=== PATIENT | female | born 1965 | race Caucasian/White ===

== ENCOUNTER 2021-04-05 21:17 | Emergency (ER) | payer MEDICAID, OTHER ==
--- NOTE | 2021-04-05 21:46 | ED Neurological Problem ---
General Chief Complaint: Altered Mental Status Stated Complaint: ALERED LOC Nursing Triage Note: Pt brought in by ems with altered mental status. Pt is alert and oriented on arrival with moderate aphasia Source: patient, EMS Exam Limitations: no limitations History of Present Illness Date Seen by Provider: Apr 05, 2021 Time Seen by Provider: 21:20 Initial Comments 55-year-old female with past medical history of CVA with speech changes, seizures, diabetes, hypertension coming in via EMS from home due to speech changes. This has been ongoing for 3 days and worsening. Similar to the last time she was diagnosed with a stroke. Daughter also called and said this is something that happens when the patient is using meth again. She says she is not using drugs currently and says she has not since January when she was admitted for her original stroke. Denies any chest pain, shortness of breath, abdominal pain, nausea, vomiting, diarrhea, weakness, numbness, fever, chills, vision changes, or any other concerns. Has been eating and drinking normally. Allergies and Home Medications Allergies Coded Allergies: sertraline (Verified Allergy, Unknown, 04/05/21) Patient Home Medication List Home Medication List Reviewed: Yes Review of Systems Review of Systems Constitutional: No chills, No fever Eyes: Denies Blurred Vision Ears, Nose, Mouth, Throat: no symptoms reported Respiratory: No cough, No short of breath Cardiovascular: No chest pain Gastrointestinal: No abdominal pain, No diarrhea, No nausea, No vomiting Genitourinary: no symptoms reported Musculoskeletal: no symptoms reported Skin: no symptoms reported Psychiatric/Neurological: Anxiety, Other (Speech changes) Endocrine: No Symptoms Reported Hematologic/Lymphatic: No Symptoms Reported All Other Systems Reviewed Negative Unless Noted: Yes Past Eckgqta-Ossgoy-Rzdrol Hx Patient Social History Tobacco Use?: Yes Tobacco type used: Cigarettes Substance type: Methamphetamine Past Medical History Surgeries: No Physical Exam Vital Signs Vital Signs - First Documented 04/05/21 21:18 Temp 36.4 Pulse 88 Resp 18 B/P (MAP) 160/94 (116) Pulse Ox 99 O2 Delivery Room Air Capillary Refill : Less Than 3 Seconds Height, Weight, BMI Height: '" Weight: lbs. oz. kg; BMI Method: General Appearance: WD/WN, no apparent distress HEENT: PERRL/EOMI, normal ENT inspection, pharynx normal Neck: non-tender, full range of motion, supple, normal inspection Respiratory: chest non-tender, lungs clear, normal breath sounds, no respiratory distress, no accessory muscle use Cardiovascular: regular rate, rhythm, no edema, no murmur Gastrointestinal: normal bowel sounds, non tender, soft; No distended, No guarding, No rebound Back: normal inspection, no CVA tenderness, no vertebral tenderness Extremities: normal range of motion, non-tender, normal inspection, no pedal edema, no calf tenderness Neurologic/Psychiatric: no motor/sensory deficits, alert, normal mood/affect, oriented x 3 Crainal Nerves: normal hearing, PERRL, other (Speech is delayed with some slurring) Coordination/Gait: normal finger to nose, normal gait Motor/Sensory: no motor deficit, no sensory deficit Skin: normal color, warm/dry Lymphatic: no adenopathy Stroke Onset of Symptoms Date of Onset of Symptoms: Mar 27, 2021 Time of Symptom Onset: 08:00 Onset of Symptoms: Yes NIH Stroke Scale Assessment Select: Initial Level of Consciousness: 0=Alert (0), Level of Consciousness- Questions: 0=Answers both month/age (0), LOC Commands: 0=Performs both tasks (0), Gaze: Normal (0), Visual Cha: 0=No visual loss (0), Facial Movement (Facial Paresis): 0=Normal symmetrical mnt (0), Motor Function-Arms Right: 0=No drift (0), Motor Function-Arms Left: 0=No drift (0), Motor Function-Legs Right: 0=No drift (0), Motor Function-Legs Left: 0=No drift (0), Limb Ataxia: 0=Absent (0), Sensory: 0=Normal:no loss (0), Best Language: 1=Mild to moderat aphasia (1), Dysarthria: 1=Mild to moderate loss (1), Extinction & Inattention: 0=No abnormality (0), Total: 2 Stroke Thrombolytic Exclusion Age 18 or Over: Yes Acute intenal hemorrhage: No History of CVA: Yes Uncontrolled Coagulation Defec: No Intracranial Hemorrhage: No Severe Hypertension: No GI or Bleed: No Subarachnoid Hemorrhage: No Intracranial Neoplasm/Aneurysm: No Oral Anticoagulants: No Surgery or Trauma: No Puncture of Non-Compressible V: No Recent CPR: No Diabetic Hemorrhagic Retinopat: No Organ Biopsy: No Recent Obstetric Delivery: No Glucose: No Significant Hepatic Dysfunctio: No NIH Stoke Scale >22: No Bacterial Endocarditis: No Pericarditis: No Improving Symptoms: Yes Platelets: No TPA Contraindication: Yes (started 3 days ago) IV - TPa Received IV - TPa Procedure Performed?: No Progress/Results/Core Measures Results/Orders Lab Results Laboratory Tests Test 04/05/21 22:00 04/05/21 22:32 Range/Units White Blood Count 9.5 4.3-11.0 10^3/uL Red Blood Count 5.02 3.80-5.11 10^6/uL Hemoglobin 13.9 11.5-16.0 g/dL Hematocrit 42 35-52 % Mean Corpuscular Volume 83 80-99 fL Mean Corpuscular Hemoglobin 28 25-34 pg Mean Corpuscular Hemoglobin Concent 33 32-36 g/dL Red Cell Distribution Width 15.8 H 10.0-14.5 % Platelet Count 422 H 130-400 10^3/uL Mean Platelet Volume 9.7 9.0-12.2 fL Immature Granulocyte % (Auto) 0 % Neutrophils (%) (Auto) 66 42-75 % Lymphocytes (%) (Auto) 25 12-44 % Monocytes (%) (Auto) 7 0-12 % Eosinophils (%) (Auto) 1 0-10 % Basophils (%) (Auto) 1 0-10 % Neutrophils # (Auto) 6.3 1.8-7.8 X 10^3 Lymphocytes # (Auto) 2.3 1.0-4.0 X 10^3 Monocytes # (Auto) 0.7 0.0-1.0 X 10^3 Eosinophils # (Auto) 0.1 0.0-0.3 10^3/uL Basophils # (Auto) 0.1 0.0-0.1 10^3/uL Immature Granulocyte # (Auto) 0.0 0.0-0.1 10^3/uL Prothrombin Time 12.9 12.2-14.7 SEC INR Comment 0.9 0.8-1.4 Activated Partial Thromboplast Time 25 24-35 SEC Sodium Level 138 135-145 MMOL/L Potassium Level 3.2 L 3.6-5.0 MMOL/L Chloride Level 99 98-107 MMOL/L Carbon Dioxide Level 24 21-32 MMOL/L Anion Gap 15 H 5-14 MMOL/L Blood Urea Nitrogen 13 7-18 MG/DL Creatinine 0.88 0.60-1.30 MG/DL Estimat Glomerular Filtration Rate 78 BUN/Creatinine Ratio 15 Glucose Level 138 H 70-105 MG/DL Calcium Level 9.1 8.5-10.1 MG/DL Corrected Calcium 9.2 8.5-10.1 MG/DL Magnesium Level 1.9 1.6-2.4 MG/DL Total Bilirubin 0.5 0.1-1.0 MG/DL Aspartate Amino Transf (AST/SGOT) 14 5-34 U/L Alanine Aminotransferase (ALT/SGPT) 11 0-55 U/L Alkaline Phosphatase 138 H 40-136 U/L Troponin I < 0.30 <0.30 NG/ML Total Protein 7.9 6.4-8.2 GM/DL Albumin 3.9 3.2-4.5 GM/DL Serum Alcohol < 10 <10 MG/DL Urine Color YELLOW Urine Clarity CLOUDY Urine pH 5.5 5-9 Urine Specific [place] >=1.030 1.016-1.022 Urine Protein 2+ H NEGATIVE Urine Glucose (UA) NEGATIVE NEGATIVE Urine Ketones NEGATIVE NEGATIVE Urine Nitrite NEGATIVE NEGATIVE Urine Bilirubin 1+ H NEGATIVE Urine Urobilinogen 0.2 < = 1.0 MG/DL Urine Leukocyte Esterase NEGATIVE NEGATIVE Urine RBC (Auto) 2+ H NEGATIVE Urine RBC NONE /HPF Urine WBC 2-5 /HPF Urine Squamous Epithelial Cells 0-2 /HPF Urine Crystals NONE /LPF Urine Bacteria LARGE H /HPF Urine Casts NONE /LPF Urine Mucus NEGATIVE /LPF Urine Culture Indicated YES Urine Opiates Screen NEGATIVE NEGATIVE Urine Oxycodone Screen NEGATIVE NEGATIVE Urine Methadone Screen NEGATIVE NEGATIVE Urine Propoxyphene Screen NEGATIVE NEGATIVE Urine Barbiturates Screen NEGATIVE NEGATIVE Ur Tricyclic Antidepressants Screen NEGATIVE NEGATIVE Urine Phencyclidine Screen NEGATIVE NEGATIVE Urine Amphetamines Screen POSITIVE H NEGATIVE Urine Methamphetamines Screen POSITIVE H NEGATIVE Urine Benzodiazepines Screen POSITIVE H NEGATIVE Urine Cocaine Screen NEGATIVE NEGATIVE Urine Cannabinoids Screen NEGATIVE NEGATIVE My Orders Orders - MICAH TINSLEY MD Cbc With Automated Diff (04/05/21 21:25) Protime With Inr (04/05/21 21:25) Partial Thromboplastin Time (04/05/21 21:25) Comprehensive Metabolic Panel (04/05/21 21:25) Troponin I Fs (04/05/21 21:25) Ua Culture If Indicated (04/05/21:25) Chest 1 View Ap/Pa Only (04/05/21:) Ekg Tracing (04/05/21:) Ed Iv/Invasive Line Start (04/05/21:) Vital Signs Stroke Patient Q15M (04/05/21 21:25) Ct Head Wo-R/O Stroke (04/05/21:) O2 (04/05/21:) Monitor-Rhythm Ecg Trace Only (04/05/21:) Dysphagia Screening Tool (04/05/21:) Drug Screen Stat (Urine) (04/05/21:) Alcohol (04/05/21:52) Magnesium (04/05/21:) Potassium Cl 10meq/50ml Ivpb (Kcl 10 Meq (04/05/21:32) Magnesium 1 Gm/100 Ml Ivpb (Magnesium Jara (04/05/21:) Urine Culture (04/05/21:) Vital Signs/I&O 04/05/21 21:18 Temp 36.4 Pulse 88 Resp 18 B/P (MAP) 160/94 (116) Pulse Ox 99 O2 Delivery Room Air Blood Pressure Mean: 116 Progress Progress Note : Progress Note 55-year-old female with above history coming in due to speech changes. ABCs were intact and vitals were stable on presentation. Physical exam normal except for she does have some dysarthria. NIH scale gets to further dysarthria and word finding difficulties. It does seem to be improving while she is in the emergency department. Given that the symptoms have been ongoing for 3 days she is not a candidate for TPA. This is similar to her prior stroke and could be recrudescence from some other etiology such as infection or drug use. CT head without contrast ordered and is similar to prior from January. Chest x-ray without any acute abnormalities. Urinalysis without evidence of infection but UDS test show methamphetamine and amphetamine. I brought this up with the patient and her spouse said that there was a time when he was in senior living recently when he was worried she could have done it with an undisclosed male which they began fighting about. Her potassium was slightly low and she was having some paired PVCs so she received IV potassium and IV magnesium replacement. She continued to be more coherent the longer she was in the emergency department. This could be intoxication versus recrudescence versus some other etiology. However, there does not appear to be any other acute abnormality that needs to be intervened on at this time. I believe she is stable for discharge with outpatient follow-up. She was sent home with strict return precautions Diagnostic Imaging Diagonstic Imaging: CT (head) Comments [facility], [place] NAME: PRESTON ALCANTARA [facility] REC#: [id number] PT STATUS: REG ER : 1965 PHYSICIAN: MICAH TINSLEY MD ADMIT DATE: 04/05/21/ER FS Signed Date of Exam:04/05/21 CT HEAD WO-R/O STROKE PROCEDURE: CT head wo r/o stroke. TECHNIQUE: Multiple contiguous axial images were obtained through the brain without the use of intravenous contrast. Auto Exposure Controls were utilized during the CT exam to meet ALARA standards for radiation dose reduction. INDICATION: Expressive aphasia The ventricles are normal in size, shape and position. There are no masses or hemorrhages. There are no extra-axial fluid collections. There are patchy areas of decreased density in the periventricular white matter in both cerebral hemispheres that are unchanged compared to 02/06/2021. IMPRESSION: Chronic ischemic leukoencephalopathy. No acute abnormality seen in the brain and no change compared to 02/06/2021. Results were called to Emergency Room prior to dictation. Dictated by: Dictated on workstation # [id number] Dict: 04/05/212151 Trans: 04/05/212153 [facility] [id number] Interpreted by: ALEISHA TAN MD Electronically signed by: ALEISHA TAN MD 04/05/212153 [facility] [place], [place] NAME: PRESTON ALCANTARA [facility] REC#: [id number] PT STATUS: REG ER : 1965 PHYSICIAN: MICAH TINSLEY MD ADMIT DATE: 04/05/21/ER FS Signed Date of Exam:04/05/21 CHEST 1 VIEW AP/PA ONLY Indication: Expressive aphasia Portable chest 9:42 PM Heart size and pulmonary vascularity are normal. Lungs are clear. There are no effusions or pneumothoraces. IMPRESSION: No acute abnormalities in the chest Dictated by: Dictated on workstation # [id number] Dict: 04/05/212153 Trans: 04/05/212153 [facility] [id number] Interpreted by: ALEISHA TAN MD Electronically signed by: ALEISHA TAN MD 04/05/212153 Departure Impression Primary Impression: Difficulty with speech Additional Impressions: Altered mental status Qualified Codes: R41.82 - Altered mental status, unspecified Hypokalemia Disposition: HOME, SELF-CARE Condition: Stable Departure-Patient Inst. Decision time for Depature: 00:00 Referrals: NO,LOCAL PHYSICIAN (PCP/Family) Primary Care Physician Patient Instructions: Hypokalemia (DC), Altered Mental Status (DC) Add. Discharge Instructions: You were seen in the emergency department because your speech has changed. We did a CT of your head which is unchanged from January. Your chest x-ray looks good. Your labs look good other than your potassium was slightly low so we gave you IV potassium and IV magnesium. This could potentially make symptoms worse. I recommend following up with the neurologist within the next couple weeks, also schedule appointment with your regular doctor if things are not improving. Work/School Note: Work Release Form Date Seen in the Emergency Department: Apr 05, 2021 Return to Work: Apr 07, 2021 Restrictions: No Restrictions MICAH TINSLEY MD Apr 05, 2021 21:46
--- NOTE | 2021-04-05 21:55 | Diagnostic Imaging Report ---
PROCEDURE: CT head wo r/o stroke. TECHNIQUE: Multiple contiguous axial images were obtained through the brain without the use of intravenous contrast. Auto Exposure Controls were utilized during the CT exam to meet ALARA standards for radiation dose reduction. INDICATION: Expressive aphasia The ventricles are normal in size, shape and position. There are no masses or hemorrhages. There are no extra-axial fluid collections. There are patchy areas of decreased density in the periventricular white matter in both cerebral hemispheres that are unchanged compared to 02/06/2021. IMPRESSION: Chronic ischemic leukoencephalopathy. No acute abnormality seen in the brain and no change compared to 02/06/2021. Results were called to Emergency Room prior to dictation. Dictated by: Dictated on workstation # [id number]
--- NOTE | 2021-04-05 21:56 | Diagnostic Imaging Report ---
Indication: Expressive aphasia Portable chest 9:42 PM Heart size and pulmonary vascularity are normal. Lungs are clear. There are no effusions or pneumothoraces. IMPRESSION: No acute abnormalities in the chest Dictated by: Dictated on workstation # [id number]
[2021-04-05 22:04] LABS: BASOPHILS % (AUTO) 1 % (0-10); EOSINOPHILS % (AUTO) 1 % (0-10); HEMATOCRIT 42 % (35-52); HEMOGLOBIN 13.9 g/dL (11.5-16.0); LYMPHOCYTES % (AUTO) 25 % (12-44); MEAN CORPUSCULAR HEMOGLOBIN 28 pg (25-34); MEAN CORPUSCULAR HGB CONC 33 g/dL (32-36); MEAN CORPUSCULAR VOLUME 83 fL (80-99); MEAN PLATELET VOLUME 9.7 fL (9.0-12.2); MONOCYTES % (AUTO) 7 % (0-12); NEUTROPHILS # (AUTO) 6.3 X 10^3 (1.8-7.8); NEUTROPHILS % (AUTO) 66 % (42-75); PLATELET COUNT 422 10^3/uL (130-400); WHITE BLOOD COUNT 9.5 10^3/uL (4.3-11.0)
[2021-04-05 22:05] LABS: BASOPHILS # (AUTO) 0.1 10^3/uL (0.0-0.1); EOSINOPHILS # (AUTO) 0.1 10^3/uL (0.0-0.3); LYMPHOCYTES # (AUTO) 2.3 X 10^3 (1.0-4.0); MONOCYTES # (AUTO) 0.7 X 10^3 (0.0-1.0)
[2021-04-05 22:15] LABS: INR 0.9 (0.8-1.4); PROTHROMBIN TIME PATIENT 12.9 SEC (12.2-14.7)
[2021-04-05 22:23] LABS: BUN/CREATININE RATIO 15; CARBON DIOXIDE 24 MMOL/L (21-32); CHLORIDE 99 MMOL/L (98-107); CREATININE SERUM 0.88 MG/DL (0.60-1.30); GFR ESTIMATED 78; POTASSIUM 3.2 MMOL/L (3.6-5.0); SODIUM 138 MMOL/L (135-145)
[2021-04-05 22:24] LABS: ALANINE AMINOTRANSFERASE 11 U/L (0-55); ALBUMIN 3.9 GM/DL (3.2-4.5); ALKALINE PHOSPHATASE 138 U/L (40-136); BILIRUBIN,TOTAL 0.5 MG/DL (0.1-1.0); CALCIUM 9.1 MG/DL (8.5-10.1); GLUCOSE 138 MG/DL (70-105); MAGNESIUM 1.9 MG/DL (1.6-2.4); TOTAL PROTEIN 7.9 GM/DL (6.4-8.2)
[2021-04-05] MEDS ORDERED: MAGNESIUM 1 GM/100 ML IVPB 100 ML IV STA (22:32)
[2021-04-05] MEDS ORDERED: POTASSIUM CL 10MEQ/50ML IVPB 50 ML IV STA (22:32)
[2021-04-05 22:37] LABS: BACTERIA,URINE LARGE /HPF; BILIRUBIN,URINE 1+ (NEGATIVE); CLARITY,URINE CLOUDY; COLOR,URINE YELLOW; GLUCOSE, URINE (UA) NEGATIVE (NEGATIVE); KETONES,URINE NEGATIVE (NEGATIVE); LEUKOCYTE ESTERASE ,URINE NEGATIVE (NEGATIVE); NITRITE,URINE NEGATIVE (NEGATIVE); PH,URINE 5.5 (5-9); PROTEIN,URINE 2+ (NEGATIVE); SQUAMOUS EPITHELIAL CELL,UR 0-2 /HPF
[2021-04-05 22:49] LABS: AMPHETAMINE SCREEN, URINE POSITIVE (NEGATIVE); BARBITURATE SCREEN URINE NEGATIVE (NEGATIVE); BENZODIAZEPINES SCREEN URINE POSITIVE (NEGATIVE); CANNABINOID SCREEN, URINE NEGATIVE (NEGATIVE); COCAINE SCREEN URINE NEGATIVE (NEGATIVE); METHADONE STAT NEGATIVE (NEGATIVE); METHAMPHETAMINE SCREEN URINE S POSITIVE (NEGATIVE); OPIATE SCREEN URINE NEGATIVE (NEGATIVE); OXYCODONE STAT NEGATIVE (NEGATIVE); PROPOXYPHENE STAT NEGATIVE (NEGATIVE); TRICYCLIC ANTIDEPRESSANTS SCRE NEGATIVE (NEGATIVE)
[2021-04-05] MEDS ORDERED: KCL 20 MEQ TAB (K-DUR) PO ONE (23:15)
[2021-04-05 23:40] VITALS: BP 137/83
== END 2021-04-05 23:40 | disposition home or self-care (01) ==
LOC: ER FS 21:21
DX: R47.9 Unspecified speech disturbances (principal); R41.82 Altered mental status, unspecified; E87.6 Hypokalemia; Z72.0 Tobacco use
CPT/HCPCS: 36415; 70450; 71045; 80053; 80306; 80320; 81000; 83735; 84484; 85025; 85610; 85730; 87088; 93041

== ENCOUNTER 2021-04-10 02:07 | Emergency (ER) | payer MEDICAID ==
[2021-04-10] MEDS ORDERED: NS IV 1000 ML 1,000 ML IV SCH ×2 (02:30→03:15)
--- NOTE | 2021-04-10 02:33 | ED Psychosocial ---
General Chief Complaint: Substance Abuse Stated Complaint: [facility] Nursing Triage Note: PT ARRIVED BY [facility] WITH CHIEF COMPLAINT OF SUBSTANCE ABUSE. PT'S HAS BEEN GONE FOR DAYS AND WHEN HE CAME BACK HE FOUND HER LIKE THIS (UNABLE TO SPEAK, UNCLEAR OF ISSUES). PT WHEN ASKED IF SHE USED METH SHE SAID YES. PT HAS TRACK BELTRÁN PER EMS. EMS STATED SHE HAD SOME PVCS ON THE MONITOR. PT HAS HISTORY OF STROKE AND SEIZURES PER EMS. PT IS ALERT, BUT WILL NOT ANSWER ANY QUESTIONS. 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 REPORT WAS GIVEN TO PROVIDER. History of Present Illness Date Seen by Provider: Apr 10, 2021 Time Seen by Provider: 02:17 Initial Comments 55 yr F with PMH of chronic substance abuse, specifically methamphetamines, stroke and seizures, is brought in by EMS with c/o methamphetamine use. Pt's called EMS since he came home and found that she had used meth, defecated all around the house, and had not been answering his phone calls. Pt is not really speaking but she is responding to commands slowly and will answer yes or no questions, and is able to walk to the bathroom with assistance. She appears intoxicated and high on meth. Denies pain, nausea, vomiting , chest pain, abdominal pain, headache. Pt was in the ER with the same complaints and presentation about 5 days ago. Allergies and Home Medications Allergies Coded Allergies: sertraline (Verified Allergy, Unknown, 04/05/21) Patient Home Medication List Home Medication List Reviewed: Yes Review of Systems Constitutional: no symptoms reported EENTM: no symptoms reported Respiratory: no symptoms reported Cardiovascular: no symptoms reported Gastrointestinal: no symptoms reported Genitourinary: no symptoms reported Musculoskeletal: no symptoms reported Skin: no symptoms reported Psychiatric/Neurological: Emotional Problems, Other (substance abuse, able to walk onher own . Pt improving in ER after fluids) Past Ybbpjix-Gefqyl-Mwidgo Hx Patient Social History Smoking Status: Unknown if Ever Smoked Substance use?: Yes Substance type: Methamphetamine Alcohol Use?: Unable to obtain Pt feels they are or have been: No Past Medical History Surgery/Hospitalization HX: IV Drug Abuse, Mehtamphetamine Abuse, Anxiety Surgeries: No Physical Exam Vital Signs - First Documented 04/10/21 02:07 Temp 36.7 Pulse 105 Resp 26 B/P (MAP) 164/115 (131) Pulse Ox 100 O2 Delivery Room Air Capillary Refill : Less Than 3 Seconds Height, Weight, BMI Height: '" Weight: lbs. oz. kg; 33.00 BMI Method: General Appearance: no apparent distress HEENT: PERRL/EOMI Neck: full range of motion Respiratory: lungs clear, normal breath sounds, no respiratory distress, no accessory muscle use Cardiovascular: no edema, no murmur, other (trigeminy) Gastrointestinal: normal bowel sounds, non tender, soft Extremities: normal range of motion, non-tender, no pedal edema, normal capillary refill Neurologic/Psychiatric: theology professor II-XII nml as tested, no motor/sensory deficits, alert, other (pt improving after she received fluids, able to ambulate and follow commands ) Appearance/Memory: no memory impairment, disheveled Behavior/Eye Contact: cooperative, refused to answer Thoughts/Hallucinations: no apparent hallucination Skin: normal color Lymphatic: no adenopathy Progress/Results/Core Measures Results/Orders Lab Results Laboratory Tests Test 04/10/21 02:35 Range/Units White Blood Count 11.7 H 4.3-11.0 10^3/uL Red Blood Count 5.55 H 3.80-5.11 10^6/uL Hemoglobin 15.3 11.5-16.0 g/dL Hematocrit 45 35-52 % Mean Corpuscular Volume 81 80-99 fL Mean Corpuscular Hemoglobin 28 25-34 pg Mean Corpuscular Hemoglobin Concent 34 32-36 g/dL Red Cell Distribution Width 15.3 H 10.0-14.5 % Platelet Count 508 H 130-400 10^3/uL Mean Platelet Volume 9.8 9.0-12.2 fL Immature Granulocyte % (Auto) 1 % Neutrophils (%) (Auto) 68 42-75 % Lymphocytes (%) (Auto) 23 12-44 % Monocytes (%) (Auto) 7 0-12 % Eosinophils (%) (Auto) 2 0-10 % Basophils (%) (Auto) 1 0-10 % Neutrophils # (Auto) 7.9 H 1.8-7.8 10^3/uL Lymphocytes # (Auto) 2.6 1.0-4.0 10^3/uL Monocytes # (Auto) 0.8 0.0-1.0 10^3/uL Eosinophils # (Auto) 0.2 0.0-0.3 10^3/uL Basophils # (Auto) 0.1 0.0-0.1 10^3/uL Immature Granulocyte # (Auto) 0.1 0.0-0.1 10^3/uL Sodium Level 138 135-145 MMOL/L Potassium Level 3.2 L 3.6-5.0 MMOL/L Chloride Level 99 98-107 MMOL/L Carbon Dioxide Level 23 21-32 MMOL/L Anion Gap 16 H 5-14 MMOL/L Blood Urea Nitrogen 8 7-18 MG/DL Creatinine 0.67 0.60-1.30 MG/DL Estimat Glomerular Filtration Rate 104 BUN/Creatinine Ratio 12 Glucose Level 125 H 70-105 MG/DL Calcium Level 9.3 8.5-10.1 MG/DL Corrected Calcium 9.2 8.5-10.1 MG/DL Total Bilirubin 0.3 0.1-1.0 MG/DL Aspartate Amino Transf (AST/SGOT) 20 5-34 U/L Alanine Aminotransferase (ALT/SGPT) 20 0-55 U/L Alkaline Phosphatase 136 40-136 U/L Troponin I < 0.30 <0.30 NG/ML Total Protein 8.3 H 6.4-8.2 GM/DL Albumin 4.1 3.2-4.5 GM/DL Salicylates Level < 0.3 L 5.0-20.0 MG/DL Acetaminophen Level < 10 L 10-30 UG/ML Serum Alcohol < 10 <10 MG/DL My Orders Orders - KAM HALL MD Ua Culture If Indicated (04/10/21 02:18) Cbc With Automated Diff (04/10/21 02:18) Comprehensive Metabolic Panel (04/10/21 02:18) Alcohol (04/10/21 02:18) Drug Screen Stat (Urine) (04/10/21 02:18) Acetaminophen (04/10/21 02:18) Salicylate (04/10/21 02:18) Ekg Tracing (04/10/21 02:18) Ed Iv/Invasive Line Start (04/10/21 02:18) Monitor-Rhythm Ecg Trace Only (04/10/21 02:18) Bh Status Checks/Observation Q15M (04/10/21 02:18) Ns Iv 1000 Ml (Sodium Chloride 0.9%) (04/10/21 02:30) Troponin I Fs (04/10/21 02:33) Ns Iv 1000 Ml (Sodium Chloride 0.9%) (04/10/21 03:15) Potassium Chloride (Tablet) (K Dur Table (04/10/21 03:17) Vital Signs/I&O 04/10/21 02:07 Temp 36.7 Pulse 105 Resp 26 B/P (MAP) 164/115 (131) Pulse Ox 100 O2 Delivery Room Air Blood Pressure Mean: 131 Progress Progress Note : Progress Note 1.METHAMPHETAMINE ABUSE: - Multiple ER visits for this - EKG shows trigeminy, but with slow improvement after fluids - Will keep in ER to observe until can come pick her up. - labs overall unremarkable - UDS: positive for methamphetamines and benzos - Recommend rehab 2. HYPOKALEMIA/ MILD DEHYDRATION: - s. Kis 3.2 - Oral Potassium 40mEq STAT - 2L of IVF, then 3rd bag 150/hr Initial ECG Impression Date: Apr 10, 2021 Initial ECG Impression Time: 02:19 Initial ECG Rate: 97 Initial ECG Rhythm: PVC (trigeminy) Initial ECG Comparisson: Unchanged Comment Trigeminy, PVC's Departure Impression Primary Impression: Methamphetamine abuse Additional Impressions: Hypokalemia Dehydration, mild Disposition: 01 HOME, SELF-CARE Condition: Improved Departure-Patient Inst. Referrals: NO,LOCAL PHYSICIAN (PCP/Family) Primary Care Physician Patient Instructions: Drug Abuse and Drug Addiction (DC), Hypokalemia (DC), Meth Mouth Add. Discharge Instructions: Advised to stop using meth. Advised Rehab. Adequate hydration advised All discharge instructions reviewed with patient and/or family. Voiced understanding. KAM HALL MD Apr 10, 2021 02:33
[2021-04-10 02:50] LABS: BASOPHILS # (AUTO) 0.1 10^3/uL (0.0-0.1); BASOPHILS % (AUTO) 1 % (0-10); EOSINOPHILS # (AUTO) 0.2 10^3/uL (0.0-0.3); EOSINOPHILS % (AUTO) 2 % (0-10); HEMATOCRIT 45 % (35-52); HEMOGLOBIN 15.3 g/dL (11.5-16.0); LYMPHOCYTES # (AUTO) 2.6 10^3/uL (1.0-4.0); LYMPHOCYTES % (AUTO) 23 % (12-44); MEAN CORPUSCULAR HEMOGLOBIN 28 pg (25-34); MEAN CORPUSCULAR HGB CONC 34 g/dL (32-36); MEAN CORPUSCULAR VOLUME 81 fL (80-99); MEAN PLATELET VOLUME 9.8 fL (9.0-12.2); MONOCYTES # (AUTO) 0.8 10^3/uL (0.0-1.0); MONOCYTES % (AUTO) 7 % (0-12); NEUTROPHILS # (AUTO) 7.9 10^3/uL (1.8-7.8); NEUTROPHILS % (AUTO) 68 % (42-75); PLATELET COUNT 508 10^3/uL (130-400); WHITE BLOOD COUNT 11.7 10^3/uL (4.3-11.0)
[2021-04-10 03:10] LABS: ACETAMINOPHEN < 10 UG/ML (10-30); SALICYLATE < 0.3 MG/DL (5.0-20.0)
[2021-04-10 03:12] LABS: BUN/CREATININE RATIO 12; CARBON DIOXIDE 23 MMOL/L (21-32); CHLORIDE 99 MMOL/L (98-107); CREATININE SERUM 0.67 MG/DL (0.60-1.30); GFR ESTIMATED 104; GLUCOSE 125 MG/DL (70-105); POTASSIUM 3.2 MMOL/L (3.6-5.0); SODIUM 138 MMOL/L (135-145)
[2021-04-10 03:13] LABS: ALANINE AMINOTRANSFERASE 20 U/L (0-55); ALBUMIN 4.1 GM/DL (3.2-4.5); ALKALINE PHOSPHATASE 136 U/L (40-136); BILIRUBIN,TOTAL 0.3 MG/DL (0.1-1.0); CALCIUM 9.3 MG/DL (8.5-10.1); TOTAL PROTEIN 8.3 GM/DL (6.4-8.2)
[2021-04-10] MEDS ORDERED: KCL 20 MEQ TAB (K-DUR) PO STA (03:17)
[2021-04-10 03:25] LABS: BILIRUBIN,URINE NEGATIVE (NEGATIVE); CLARITY,URINE CLEAR; COLOR,URINE YELLOW; GLUCOSE, URINE (UA) NEGATIVE (NEGATIVE); KETONES,URINE 2+ (NEGATIVE); LEUKOCYTE ESTERASE ,URINE NEGATIVE (NEGATIVE); NITRITE,URINE NEGATIVE (NEGATIVE); PROTEIN,URINE TRACE (NEGATIVE)
[2021-04-10 03:32] LABS: BACTERIA,URINE TRACE /HPF; WBC,URINE 0-2 /HPF
[2021-04-10 03:42] LABS: AMPHETAMINE SCREEN, URINE POSITIVE (NEGATIVE); BENZODIAZEPINES SCREEN URINE POSITIVE (NEGATIVE); COCAINE SCREEN URINE NEGATIVE (NEGATIVE); METHAMPHETAMINE SCREEN URINE S POSITIVE (NEGATIVE)
[2021-04-10 03:43] LABS: BARBITURATE SCREEN URINE NEGATIVE (NEGATIVE); CANNABINOID SCREEN, URINE NEGATIVE (NEGATIVE); METHADONE STAT NEGATIVE (NEGATIVE); OPIATE SCREEN URINE NEGATIVE (NEGATIVE); OXYCODONE STAT NEGATIVE (NEGATIVE); PROPOXYPHENE STAT NEGATIVE (NEGATIVE); TRICYCLIC ANTIDEPRESSANTS SCRE NEGATIVE (NEGATIVE)
[2021-04-10] MEDS ORDERED: NS IV 1000 ML 1,000 ML IV STA (03:58)
[2021-04-10 06:15] VITALS: BP 152/90
== END 2021-04-10 06:15 | disposition home or self-care (01) ==
LOC: EDUNIT# 02:07 → ER FS 02:08
DX: F15.10 Other stimulant abuse, uncomplicated (principal); E87.6 Hypokalemia; E86.0 Dehydration
CPT/HCPCS: 36415; 80053; 80306; 80320; 80329; 81000; 84484; 85025; 93005; 93041

== ENCOUNTER 2021-04-19 11:13 | Emergency (ER) | payer MEDICAID ==
[~2021-04-19] VITALS: Ht 149.9 cm; Wt 78.0 kg
[2021-04-19] MEDS ORDERED: NS IV 1000 ML 1,000 ML IV SCH (11:30)
[2021-04-19 11:43] LABS: BASOPHILS # (AUTO) 0.1 10^3/uL (0.0-0.1); BASOPHILS % (AUTO) 1 % (0-10); EOSINOPHILS # (AUTO) 0.2 10^3/uL (0.0-0.3); EOSINOPHILS % (AUTO) 2 % (0-10); HEMATOCRIT 47 % (35-52); HEMOGLOBIN 15.2 g/dL (11.5-16.0); LYMPHOCYTES # (AUTO) 2.3 10^3/uL (1.0-4.0); LYMPHOCYTES % (AUTO) 22 % (12-44); MEAN CORPUSCULAR HEMOGLOBIN 28 pg (25-34); MEAN CORPUSCULAR HGB CONC 33 g/dL (32-36); MEAN CORPUSCULAR VOLUME 84 fL (80-99); MEAN PLATELET VOLUME 10.6 fL (9.0-12.2); MONOCYTES # (AUTO) 0.6 10^3/uL (0.0-1.0); MONOCYTES % (AUTO) 6 % (0-12); NEUTROPHILS # (AUTO) 7.2 10^3/uL (1.8-7.8); NEUTROPHILS % (AUTO) 69 % (42-75); PLATELET COUNT 495 10^3/uL (130-400); WHITE BLOOD COUNT 10.5 10^3/uL (4.3-11.0)
[2021-04-19 12:03] LABS: BILIRUBIN,TOTAL 0.5 MG/DL (0.1-1.0); CALCIUM 9.7 MG/DL (8.5-10.1); CREATININE SERUM 0.83 MG/DL (0.60-1.30); POTASSIUM 4.6 MMOL/L (3.6-5.0)
[2021-04-19 12:04] LABS: ALBUMIN 4.3 GM/DL (3.2-4.5); TOTAL PROTEIN 8.3 GM/DL (6.4-8.2)
--- NOTE | 2021-04-19 12:19 | ED General ---
General Chief Complaint: General Problems/Pain Stated Complaint: NOT EATING/DRINKING Nursing Triage Note: PT AMBULATE TO ROOM FS02 WITH C/O NOT EATING OR DRINKING X48 HOURS. FAMILY STATES THAT PT HAS HX OF STROKE AND TIA AND WAS DISCHARGED FOR [facility] FOR TIA ON 04/15/21. DAUGHTER STATES THAT SHE IS TAKING PT HOME WITH HER AND THAT SHE IS WANTING FLUIDS TO GIVE HER ENOUGH ENERGY TO START EATING AND DRINKING. Source of Information: Patient Exam Limitations: No Limitations History of Present Illness Date Seen by Provider: Apr 19, 2021 Time Seen by Provider: 11:45 Initial Comments Patient is a 55-year-old female with history of CVA who requires in-home care to perform ADLs including feeding who presents with concerns for neglect. Patient's daughter states the patient has not been eating or drinking for the past 48 hours due to lack of attendant care in the home. Patient has a stroke history of TIA was discharged from [facility] on 04/15/2021. Daughter is seeking to transition care to her home and notify social worker delinquency prevention. Patient denies new symptoms or complaints at this time. Timing/Duration: 3-4 Days Severity: Mild Modifying Factors: improves with Other Associated Systoms: Other Allergies and Home Medications Allergies Coded Allergies: sertraline (Verified Allergy, Unknown, 04/05/21) Patient Home Medication List Home Medication List Reviewed: Yes Review of Systems Review of Systems Constitutional: see HPI EENTM: see HPI Respiratory: see HPI Cardiovascular: see HPI Gastrointestinal: see HPI Genitourinary: see HPI Musculoskeletal: see HPI Skin: see HPI Psychiatric/Neurological: See HPI Hematologic/Lymphatic: See HPI Immunological/Allergic: see HPI All Other Systems Reviewed Negative Unless Noted: Yes Past Wolywar-Pkgnxq-Zfmeqf Hx Patient Social History Tobacco Use?: Yes Tobacco type used: Cigarettes Smoking Status: Current Everyday Smoker Smokeless Tobacco Frequency: Never a User Use of E-Cig and/or Vaping Smith: Never a User Substance use?: Yes Substance type: Methamphetamine Substance frequency: Couple times a week Alcohol Use?: No Pt feels they are or have been: No Past Medical History Surgery/Hospitalization HX: IV Drug Abuse, Mehtamphetamine Abuse, Anxiety Surgeries: No Physical Exam Vital Signs Vital Signs - First Documented 04/19/21 11:20 Temp 36.5 Pulse 107 Resp 14 B/P (MAP) 144/69 (94) O2 Delivery Room Air Capillary Refill : Less Than 3 Seconds Height, Weight, BMI Height: '" Weight: lbs. oz. kg; 34.00 BMI Method: General Appearance: WD/WN Eyes: Bilateral Eye Normal Inspection, Bilateral Eye PERRL, Bilateral Eye EOMI HEENT: PERRL/EOMI, Normal ENT Inspection, Pharynx Normal Neck: Full Range of Motion, Non Tender, Supple Respiratory: Lungs Clear, Decreased Breath Sounds, Rhonci Cardiovascular: Regular Rate, Rhythm Gastrointestinal: Non Tender, Soft Extremity: Non Tender, No Calf Tenderness Neurologic/Psychiatric: Alert, Oriented x3 Focused Exam Sepsis Stage: Ruled Out Progress/Results/Core Measures Suspected Sepsis SIRS Temperature: Pulse: 107 Respiratory Rate: 14 Laboratory Tests 04/19/21 11:39: White Blood Count 10.5 Blood Pressure 144 /69 Mean: 94 Laboratory Tests 04/19/21 11:39: Creatinine 0.83, Platelet Count 495H, Total Bilirubin 0.5 Results/Orders Lab Results Laboratory Tests Test 04/19/21 11:39 04/19/21 13:00 Range/Units White Blood Count 10.5 4.3-11.0 10^3/uL Red Blood Count 5.53 H 3.80-5.11 10^6/uL Hemoglobin 15.2 11.5-16.0 g/dL Hematocrit 47 35-52 % Mean Corpuscular Volume 84 80-99 fL Mean Corpuscular Hemoglobin 28 25-34 pg Mean Corpuscular Hemoglobin Concent 33 32-36 g/dL Red Cell Distribution Width 16.1 H 10.0-14.5 % Platelet Count 495 H 130-400 10^3/uL Mean Platelet Volume 10.6 9.0-12.2 fL Immature Granulocyte % (Auto) 0 % Neutrophils (%) (Auto) 69 42-75 % Lymphocytes (%) (Auto) 22 12-44 % Monocytes (%) (Auto) 6 0-12 % Eosinophils (%) (Auto) 2 0-10 % Basophils (%) (Auto) 1 0-10 % Neutrophils # (Auto) 7.2 1.8-7.8 10^3/uL Lymphocytes # (Auto) 2.3 1.0-4.0 10^3/uL Monocytes # (Auto) 0.6 0.0-1.0 10^3/uL Eosinophils # (Auto) 0.2 0.0-0.3 10^3/uL Basophils # (Auto) 0.1 0.0-0.1 10^3/uL Immature Granulocyte # (Auto) 0.0 0.0-0.1 10^3/uL Sodium Level 136 135-145 MMOL/L Potassium Level 4.6 3.6-5.0 MMOL/L Chloride Level 98 98-107 MMOL/L Carbon Dioxide Level 24 21-32 MMOL/L Anion Gap 14 5-14 MMOL/L Blood Urea Nitrogen 16 7-18 MG/DL Creatinine 0.83 0.60-1.30 MG/DL Estimat Glomerular Filtration Rate 84 BUN/Creatinine Ratio 19 Glucose Level 258 H 70-105 MG/DL Calcium Level 9.7 8.5-10.1 MG/DL Corrected Calcium 9.5 8.5-10.1 MG/DL Total Bilirubin 0.5 0.1-1.0 MG/DL Aspartate Amino Transf (AST/SGOT) 31 5-34 U/L Alanine Aminotransferase (ALT/SGPT) 26 0-55 U/L Alkaline Phosphatase 121 40-136 U/L Total Protein 8.3 H 6.4-8.2 GM/DL Albumin 4.3 3.2-4.5 GM/DL Urine Color YELLOW Urine Clarity CLEAR Urine pH 6.5 5-9 Urine Specific Rescue 1.025 H 1.016-1.022 Urine Protein TRACE H NEGATIVE Urine Glucose (UA) 2+ H NEGATIVE Urine Ketones TRACE H NEGATIVE Urine Nitrite NEGATIVE NEGATIVE Urine Bilirubin NEGATIVE NEGATIVE Urine Urobilinogen 1.0 < = 1.0 MG/DL Urine Leukocyte Esterase NEGATIVE NEGATIVE Urine RBC (Auto) NEGATIVE NEGATIVE Urine RBC NONE /HPF Urine WBC NONE /HPF Urine Squamous Epithelial Cells 10-25 H /HPF Urine Crystals NONE /LPF Urine Bacteria TRACE /HPF Urine Casts PRESENT /LPF Urine Hyaline Casts 5-10 H /LPF Urine Mucus NEGATIVE /LPF Urine Yeast FEW H /HPF Urine Culture Indicated NO My Orders Orders - GLORIA MERCEDES DO Cbc With Automated Diff (04/19/21 11:28) Comprehensive Metabolic Panel (04/19/21 11:28) Ua Culture If Indicated (04/19/21 11:28) Ns Iv 1000 Ml (Sodium Chloride 0.9%) (04/19/21 11:30) Vital Signs/I&O 04/19/21 11:20 Temp 36.5 Pulse 107 Resp 14 B/P (MAP) 144/69 (94) O2 Delivery Room Air Capillary Refill : Less Than 3 Seconds Blood Pressure Mean: 94 Departure Communication (Admissions) IV fluids given, labs reviewed. Labs reviewed. Will dc home to daughter and PCP follow up. Impression Primary Impression: General medical exam Disposition: HOME, SELF-CARE Condition: Stable Departure-Patient Inst. Decision time for Depature: 13:33 Referrals: THONY ORELLANA MD (PCP/Family) Primary Care Physician Add. Discharge Instructions: Please follow-up with your PCP and/or rehabilitation supervisor for coordination of additional outpatient resources and management. Return to the ED if new or wor sening symptoms. All discharge instructions reviewed with patient and/or family. Voiced understanding. GLORIA MERCEDES DO Apr 19, 2021 12:19
[2021-04-19 13:10] LABS: BACTERIA,URINE TRACE /HPF; BILIRUBIN,URINE NEGATIVE (NEGATIVE); CLARITY,URINE CLEAR; COLOR,URINE YELLOW; GLUCOSE, URINE (UA) 2+ (NEGATIVE); KETONES,URINE TRACE (NEGATIVE); LEUKOCYTE ESTERASE ,URINE NEGATIVE (NEGATIVE); NITRITE,URINE NEGATIVE (NEGATIVE); PH,URINE 6.5 (5-9); PROTEIN,URINE TRACE (NEGATIVE)
[2021-04-19 13:11] LABS: YEAST,URINE FEW /HPF
[2021-04-19 13:47] VITALS: BP 146/71
== END 2021-04-19 13:47 | disposition home or self-care (01) ==
LOC: EDUNIT# 11:13 → ER FS 11:15
DX: Z00.00 Encounter for general adult medical examination without abnormal findings (principal); F17.210 Nicotine dependence, cigarettes, uncomplicated
CPT/HCPCS: 36415; 80053; 81000; 85025; 96360; 99283

== ENCOUNTER 2022-05-11 10:00 | Inpatient (IN) | payer MEDICAID ==
[~2022-05-11] VITALS: Ht 149.9 cm; Wt 72.2 kg
--- NOTE | 2022-05-11 10:22 | ED Integumentary General ---
General Chief Complaint: Skin/Wound Problems Stated Complaint: BACK ABCESS History of Present Illness Date Seen by Provider: May 11, 2022 Time Seen by Provider: 10:13 Initial Comments 56-year-old female with PMH of HTN/DM2/HLD/past CVA, is here with complaints of an swelling on her back. Patient went to urgent care 1 week back and was started on Bactrim. Patient states that she has developed fever and chills with nausea and vomiting in the past few days, with the abscess becoming more red and inflamed, with associated back pain. Denies headache, neck pain, neck stiffness, blurry vision, insect bites. Allergies and Home Medications Allergies Coded Allergies: sertraline (Verified Allergy, Unknown, 04/05/21) Patient Home Medication List Home Medication List Reviewed: Yes Review of Systems Review of Systems Constitutional: chills, fever EENTM: no symptoms reported Respiratory: no symptoms reported Cardiovascular: no symptoms reported Gastrointestinal: no symptoms reported Genitourinary: no symptoms reported : No Musculoskeletal: back pain Skin: change in color, lesions Psychiatric/Neurological: No Symptoms Reported Endocrine: No Symptoms Reported Hematologic/Lymphatic: No Symptoms Reported Past Nyhdlms-Egdzxt-Brskgb Hx Past Medical History Surgery/Hospitalization HX: IV Drug Abuse, Mehtamphetamine Abuse, Anxiety Surgeries: No Physical Exam Vital Signs Vital Signs - First Documented 05/11/22 10:03 Temp 36.8 Pulse 95 Resp 16 Pulse Ox 100 O2 Delivery Room Air Capillary Refill : General Appearance: WD/WN, no apparent distress HEENT: PERRL/EOMI Neck: non-tender, full range of motion, supple, normal inspection Back: vertebral tenderness (T2-T4 tenderness underneath the skin changes. See skin exam for details on abscess) Extremities: normal range of motion, non-tender Neurologic/Psychiatric: no motor/sensory deficits, alert, normal mood/affect, oriented x 3 Skin: other (Inflamed and erythematous skin changes on back overlying the thoracic spine, approximately T2-T4 levels. Erythema measuring 9 cm diameter, warm to touch, firm in consistency. No active discharge) Skin Problem Location: other Skin Problem Character: erythema, tenderness, thickening, warm Progress/Results/Core Measures Results/Orders Lab Results Laboratory Tests Test 05/11/22 11:10 Range/Units White Blood Count 21.5 H 4.3-11.0 10^3/uL Red Blood Count 4.75 3.80-5.11 10^6/uL Hemoglobin 13.3 11.5-16.0 g/dL Hematocrit 40 35-52 % Mean Corpuscular Volume 85 80-99 fL Mean Corpuscular Hemoglobin 28 25-34 pg Mean Corpuscular Hemoglobin Concent 33 32-36 g/dL Red Cell Distribution Width 14.6 H 10.0-14.5 % Platelet Count 525 H 130-400 10^3/uL Mean Platelet Volume 9.2 9.0-12.2 fL Immature Granulocyte % (Auto) 1 % Neutrophils (%) (Auto) 82 H 42-75 % Lymphocytes (%) (Auto) 10 L 12-44 % Monocytes (%) (Auto) 6 0-12 % Eosinophils (%) (Auto) 1 0-10 % Basophils (%) (Auto) 0 0-10 % Neutrophils # (Auto) 17.6 H 1.8-7.8 10^3/uL Lymphocytes # (Auto) 2.1 1.0-4.0 10^3/uL Monocytes # (Auto) 1.3 H 0.0-1.0 10^3/uL Eosinophils # (Auto) 0.3 0.0-0.3 10^3/uL Basophils # (Auto) 0.1 0.0-0.1 10^3/uL Immature Granulocyte # (Auto) 0.2 H 0.0-0.1 10^3/uL Neutrophils % (Manual) 78 % Lymphocytes % (Manual) 14 % Monocytes % (Manual) 5 % Eosinophils % (Manual) 1 % Basophils % (Manual) 0 % Band Neutrophils 2 % Sodium Level 135 135-145 MMOL/L Potassium Level 3.9 3.6-5.0 MMOL/L Chloride Level 98 98-107 MMOL/L Carbon Dioxide Level 21 21-32 MMOL/L Anion Gap 16 H 5-14 MMOL/L Blood Urea Nitrogen 12 7-18 MG/DL Creatinine 1.22 0.60-1.30 MG/DL Estimat Glomerular Filtration Rate 52 BUN/Creatinine Ratio 10 Glucose Level 147 H 70-105 MG/DL Lactic Acid Level 2.18 *H 0.50-2.00 MMOL/L Calcium Level 9.6 8.5-10.1 MG/DL Corrected Calcium 9.6 8.5-10.1 MG/DL Total Bilirubin 0.2 0.1-1.0 MG/DL Aspartate Amino Transf (AST/SGOT) 14 5-34 U/L Alanine Aminotransferase (ALT/SGPT) 14 0-55 U/L Alkaline Phosphatase 158 H 40-136 U/L Total Protein 8.6 H 6.4-8.2 GM/DL Albumin 4.0 3.2-4.5 GM/DL My Orders Orders - KAM HALL MD Ct Thoracic Spine Wo (05/11/22 10:22) Cbc With Automated Diff (05/11/22 11:04) Comprehensive Metabolic Panel (05/11/22 11:04) Lactic Acid Analyzer (05/11/22 11:04) Blood Culture (05/11/22 11:04) Piperacillin Sodium/Tazobactam (Zosyn Vi (05/11/22 11:15) Vancomycin Injection (Vancomycin Injecti (05/11/22 11:15) Vancomycin Injection (Vancomycin Injecti (05/11/22 11:12) Manual Differential (05/11/22 11:10) Ed Iv/Invasive Line Start (05/11/22 12:01) Ns Iv 1000 Ml (Sodium Chloride 0.9%) (05/11/22 12:15) Medications Given in ED Current Medications Medications Dose Ordered Sig/Aaron Route Start Time Stop Time Status Last Admin Dose Admin Piperacillin Sod/ Tazobactam Sod 4.5 gm/Sodium Chloride 100 ml @ 200 mls/hr ONCE ONCE IV 05/11/22 11:15 05/11/22 11:44 DC 05/11/22 11:29 200 MLS/HR Vancomycin HCl 1000 mg/Sodium Chloride 250 ml @ 250 mls/hr ONCE ONCE IV 05/11/22 11:15 05/11/22 12:14 DC 05/11/22 12:04 250 MLS/HR Vital Signs/I&O 05/11/22 10:03 Temp 36.8 Pulse 95 Resp 16 B/P (MAP) Pulse Ox 100 O2 Delivery Room Air Progress Progress Note : Progress Note 1. CELLULITIS OF BACK: - CT THORACIC SPINE:Soft tissue edema in the subcutaneous tissues overlying the T2-T6 spinous processes. No fluid collections are identified on this noncontrast exam. No suspicious osteoblastic or lytic changes in the adjacent osseous structures. -CT spine was done because patient was having vertebral tenderness, coinciding below skin lesion associated with nausea vomiting, and fever, and wanted to rule out spinal abscess extending to the skin. CT does not show any fluid collection to indicate an abscess at this time, in addition to clinical findings. Patient has cellulitis which has not responded to 1 week of Bactrim. Patient will be needing IV antibiotics - CBC: Elevated WBC of 21.5 with a left shift - CMP:unremarkable - Lactic acid:elevated: 2.18 - Blood cultures sent - Zosyn/ Vanco iv in ER - NS IVF bolus STAT - Will admit to [facility], discussed with hospitalist and accepted for adm ission Diagnostic Imaging Diagonstic Imaging: CT Plain Films/CT/US/NM/MRI: other Comments [facility]. [place], [place] NAME: [facility] REC#: [id number] PT STATUS: REG ER : 1965 PHYSICIAN: KAM HALL MD ADMIT DATE: 05/11/22/ER FS Draft Date of Exam:05/11/22 CT THORACIC SPINE WO PROCEDURE: CT thoracic spine without contrast. TECHNIQUE: Multiple axial computerized tomography images were obtained from the base of the thoracic spine to the vertex without intravenous contrast. Auto Exposure Controls were utilized during the CT exam to meet ALARA standards for radiation dose reduction. INDICATION: Spinal abscess. COMPARISON: None. FINDINGS: Normal alignment of the thoracic spine. Grade 1 retrolisthesis of C5 on C6. Vertebral body heights are preserved. No fractures. No suspicious osteoblastic or lytic changes. Mild diffuse degenerative endplate changes. No CT evidence of high-grade spinal canal stenosis. Chronic appearing posterior right 10th through 12th rib fractures. Soft tissue edema and fat stranding in the dorsal subcutaneous tissues at the levels of T2-T6. No evidence of a fluid collection on this noncontrast exam. Large esophageal hiatal hernia. Cholecystectomy clips. IMPRESSION: 1. Soft tissue edema in the subcutaneous tissues overlying the T2-T6 spinous processes. No fluid collections are identified on this noncontrast exam. No suspicious osteoblastic or lytic changes in the adjacent osseous structures. 2. Mild spondylotic changes. No CT evidence of high-grade neural impingement. No acute osseous findings. Dictated on workstation # [id number] Dict: 05/11/22 1045 Trans: 05/11/22 1057 [id number] Interpreted by: GREGORY RICHARD MD Electronically signed by: Departure Communication (Admissions) Time/Spoke to Admitting Phy: 12:[address] Wilson, hospitalist and accepted for admission to inpatient Impression Primary Impression: Cellulitis of back Disposition: 30 STILL A PATIENT Condition: Stable Admissions Decision to Admit Reason: Admit from ER (General) Decision to Admit/Date: May 11, 2022 Time/Decision to Admit Time: 11:00 Transfer Method of Transfer: EMS Departure-Patient Inst. Referrals: KELVIN DELGADO MD (PCP) Primary Care Physician KAM HALL MD May 11, 2022 10:22
--- NOTE | 2022-05-11 10:57 | Diagnostic Imaging Report ---
PROCEDURE: CT thoracic spine without contrast. TECHNIQUE: Multiple axial computerized tomography images were obtained from the base of the thoracic spine to the vertex without intravenous contrast. Auto Exposure Controls were utilized during the CT exam to meet ALARA standards for radiation dose reduction. INDICATION: Spinal abscess. COMPARISON: None. FINDINGS: Normal alignment of the thoracic spine. Grade 1 retrolisthesis of C5 on C6. Vertebral body heights are preserved. No fractures. No suspicious osteoblastic or lytic changes. Mild diffuse degenerative endplate changes. No CT evidence of high-grade spinal canal stenosis. Chronic appearing posterior right 10th through 12th rib fractures. Soft tissue edema and fat stranding in the dorsal subcutaneous tissues at the levels of T2-T6. No evidence of a fluid collection on this noncontrast exam. Large esophageal hiatal hernia. Cholecystectomy clips. IMPRESSION: 1. Soft tissue edema in the subcutaneous tissues overlying the T2-T6 spinous processes. No fluid collections are identified on this noncontrast exam. No suspicious osteoblastic or lytic changes in the adjacent osseous structures. 2. Mild spondylotic changes. No CT evidence of high-grade neural impingement. No acute osseous findings. Dictated by: Dictated on workstation # [id number]
[2022-05-11] MEDS ORDERED: VANCOMYCIN 1000 MG/VIAL ONE (11:12)
[2022-05-11] MEDS ORDERED: VANCOMYCIN INJECTION 1,000 MG in NS (IVPB) 250 ML IV ONE (11:15)
[2022-05-11] MEDS ORDERED: PIPERACILLIN SODIUM/TAZOBACTAM 4.5 GM in NS (IVPB) 100 ML IV ONE (11:15)
[2022-05-11 11:29] LABS: BASOPHILS # (AUTO) 0.1 10^3/uL (0.0-0.1); BASOPHILS % (AUTO) 0 % (0-10); EOSINOPHILS # (AUTO) 0.3 10^3/uL (0.0-0.3); EOSINOPHILS % (AUTO) 1 % (0-10); HEMATOCRIT 40 % (35-52); HEMOGLOBIN 13.3 g/dL (11.5-16.0); LYMPHOCYTES # (AUTO) 2.1 10^3/uL (1.0-4.0); LYMPHOCYTES % (AUTO) 10 % (12-44); MEAN CORPUSCULAR HEMOGLOBIN 28 pg (25-34); MEAN CORPUSCULAR HGB CONC 33 g/dL (32-36); MEAN CORPUSCULAR VOLUME 85 fL (80-99); MEAN PLATELET VOLUME 9.2 fL (9.0-12.2); MONOCYTES # (AUTO) 1.3 10^3/uL (0.0-1.0); MONOCYTES % (AUTO) 6 % (0-12); NEUTROPHILS # (AUTO) 17.6 10^3/uL (1.8-7.8); NEUTROPHILS % (AUTO) 82 % (42-75); PLATELET COUNT 525 10^3/uL (130-400); WHITE BLOOD COUNT 21.5 10^3/uL (4.3-11.0)
[2022-05-11 11:51] LABS: POTASSIUM 3.9 MMOL/L (3.6-5.0)
[2022-05-11 11:52] LABS: BILIRUBIN,TOTAL 0.2 MG/DL (0.1-1.0); CALCIUM 9.6 MG/DL (8.5-10.1); CREATININE SERUM 1.22 MG/DL (0.60-1.30); TOTAL PROTEIN 8.6 GM/DL (6.4-8.2)
[2022-05-11 12:02] LABS: BAND NEUTROPHILS 2 %; NEUTROPHILS % (MANUAL) 78 %
[2022-05-11 12:03] LABS: BASOPHILS % (MANUAL) 0 %; EOSINOPHILS % (MANUAL) 1 %; LYMPHOCYTES % (MANUAL) 14 %; MONOCYTES % (MANUAL) 5 %
[2022-05-11] MEDS ORDERED: NS IV 1000 ML 1,000 ML IV SCH (12:15)
[2022-05-11 14:35] VITALS: BP 118/64
[2022-05-11] MEDS ORDERED: ACETAMINOPHEN 325 MG TABLET PO PRN (15:00)
[2022-05-11] MEDS ORDERED: VANCOMYCIN INJECTION 0.1 MG in NS (IVPB) 250 ML IV SCH (15:00)
[2022-05-11] MEDS ORDERED: MELATONIN 3 MG TABLET PO PRN (15:00)
[2022-05-11] MEDS ORDERED: polyethylene glycoL POWDER 17 GM (MIRALAX) PACK PO PRN (15:00)
[2022-05-11] MEDS ORDERED: ONDANSETRON 4 MG/2 ML (SDV) Z0FRAN IV PRN (15:00)
[2022-05-11] MEDS ORDERED: VANCOMYCIN 500 MG/NS 100 ML IV NR ×2 (15:30)
[2022-05-11] MEDS: NS IV 1000 ML 1,000 ML IV SCH ×2 (15:35→20:55)
[2022-05-11] MEDS: ENOXAPARIN 40 MG/0.4 ML (LOVENOX) SYR SC SCH (15:35)
[2022-05-11] MEDS: inSUlin ASPART (NovoLOG) 1 UNIT/0.01 ML (CHARGE PER UNIT) SC SCH ×2 (16:13→20:25)
[2022-05-11 16:21] VITALS: BP 114/57
[2022-05-11] MEDS: PIPERACILLIN SODIUM/TAZOBACTAM 4.5 GM in NS (IVPB) 100 ML IV SCH (17:18)
[2022-05-11] MEDS ORDERED: fentaNYL INJ 100 MCG/2 ML AMP IVP PRN (17:30)
[2022-05-11 20:18] VITALS: BP 92/54
[2022-05-11 23:06] VITALS: BP 102/54
[2022-05-12] MEDS: PIPERACILLIN SODIUM/TAZOBACTAM 4.5 GM in NS (IVPB) 100 ML IV SCH ×3 (01:47→18:49)
[2022-05-12] MEDS: KETOROLAC 15 MG/ML VIAL IVP PRN ×3 (01:47→21:35)
[2022-05-12 04:50] VITALS: BP 107/59
[2022-05-12] MEDS: inSUlin ASPART (NovoLOG) 1 UNIT/0.01 ML (CHARGE PER UNIT) SC SCH ×4 (05:11→20:23)
[2022-05-12 06:25] LABS: BASOPHILS # (AUTO) 0.1 10^3/uL (0.0-0.1); BASOPHILS % (AUTO) 0 % (0-10); EOSINOPHILS # (AUTO) 0.3 10^3/uL (0.0-0.3); EOSINOPHILS % (AUTO) 2 % (0-10); HEMATOCRIT 37 % (35-52); HEMOGLOBIN 12.2 g/dL (11.5-16.0); LYMPHOCYTES # (AUTO) 2.2 10^3/uL (1.0-4.0); LYMPHOCYTES % (AUTO) 15 % (12-44); MEAN CORPUSCULAR HEMOGLOBIN 29 pg (25-34); MEAN CORPUSCULAR HGB CONC 33 g/dL (32-36); MEAN CORPUSCULAR VOLUME 88 fL (80-99); MEAN PLATELET VOLUME 9.7 fL (9.0-12.2); MONOCYTES # (AUTO) 1.4 10^3/uL (0.0-1.0); MONOCYTES % (AUTO) 9 % (0-12); NEUTROPHILS % (AUTO) 73 % (42-75); PLATELET COUNT 394 10^3/uL (130-400); WHITE BLOOD COUNT 15.2 10^3/uL (4.3-11.0)
[2022-05-12 06:48] LABS: ALBUMIN 3.2 GM/DL (3.2-4.5); BILIRUBIN,TOTAL 0.2 MG/DL (0.1-1.0); CALCIUM 8.6 MG/DL (8.5-10.1); CREATININE SERUM 1.01 MG/DL (0.60-1.30); POTASSIUM 4.2 MMOL/L (3.6-5.0); TOTAL PROTEIN 6.8 GM/DL (6.4-8.2)
[2022-05-12 08:00] VITALS: BP 115/59
[2022-05-12] MEDS: NS IV 1000 ML 1,000 ML IV SCH ×2 (09:24→13:11)
[2022-05-12] MEDS ORDERED: LISI40TA9 PO (11:33)
[2022-05-12] MEDS ORDERED: ASPI-1238 PO (11:33)
[2022-05-12] MEDS ORDERED: SULF-221 PO (11:33)
[2022-05-12] MEDS ORDERED: CLOP75TA28 PO (11:33)
[2022-05-12] MEDS ORDERED: FLUV50TA23 PO (11:33)
[2022-05-12] MEDS ORDERED: PANT40TA52 PO (11:33)
[2022-05-12] MEDS ORDERED: ATOR80TA76 PO (11:33)
[2022-05-12] MEDS ORDERED: METF-397 PO (11:33)
[2022-05-12] MEDS ORDERED: AMLO-251 PO (11:33)
--- NOTE | 2022-05-12 11:38 | History & Physical-Hospitalist ---
GRAHAM SHAH 05/12/22 1138: History of Present Illness HPI/Chief Complaint Kalee Lemon is a 56 yo F w/ a hx of HTN, DM2, CVA, and a cardiac aneurysm who presented with redness and swelling on her back. She notes she has had this back wound for about a week and she went to urgent care for it at that time. She was given bactrim but it did not go away. Now it has worsened and become purulent. She notes it is painful and rates it at 8/10. She says that for the past two days she has had subjective fever/chills and nausea. W/u in ED included thoracic ct which did not show any fluid collection. She says she sees Dr. Ponce as her pcp. Kalee says she smokes 1ppd since she was about 31 (25packyears). Source: patient Date Seen 05/12/22 Time Seen by a Provider: 10:15 Attending Physician Ofelia Ponce MD PCP Admitting Physician: Blanca Rose MD Attending Physician: Blanca Rose MD Referring Physician Date of Admission May 11, 2022 at 14:30 Home Medications & Allergies Home Medications Reviewed patient Home Medication Reconciliation performed by pharmacy medication reconciliations histotechnician and/or nursing. Patients Allergies have been reviewed. Allergies Allergies Coded Allergies sertraline (Verified Allergy, Unknown, 04/05/21) Past Towyxkf-Zkplja-Hrdtyz Hx Patient Social History Tobacco Use?: Yes Tobacco type used: Cigarettes Smoking Status: Current Everyday Smoker (1 ppd) Smokeless Tobacco Frequency: Current Everyday User Use of E-Cig and/or Vaping dev: No Substance use?: Yes Substance type: Methamphetamine Additional substance use comme: HX IV drug use Alcohol Use?: No Pt feels they are or have been: No Immunizations Up To Date First/Initial COVID19 Vaccinat: Denies Current Status status: No status: No Advance Directives: No Communicates: Verbally Primary Language: Pakistani Preferred Spoken Language: Pakistani Is interpretation needed?: No Implanted or Applied Medical D: None Past Medical History Surgeries: Section, Gallbladder High Cholesterol TIA Diabetes, Non-Insulin dep Review of Systems Constitutional: no symptoms reported EENTM: No blurred vision, No double vision Respiratory: No cough, No short of breath Cardiovascular: No chest pain, No palpitations Gastrointestinal: No abdominal pain, No constipation, No diarrhea, No hematemesis; nausea; No vomiting Genitourinary: no symptoms reported Musculoskeletal: back pain Skin: change in color; No pruritus, No rash Psychiatric/Neurological: No Symptoms Reported All Other Systems Reviewed Negative Unless Noted: Yes Physical Exam Physical Exam Vital Signs Vital Signs - First Documented 05/11/22 05/11/22 10:03 13:10 Temp 36.8 Pulse 95 Resp 16 B/P (MAP) 105/69 Pulse Ox 100 O2 Delivery Room Air Capillary Refill : Less Than 3 Seconds Height, Weight, BMI Height: '" Weight: lbs. oz. kg; 32.13 BMI Method: General Appearance: No Apparent Distress, WD/WN Eyes: Bilateral Eye Normal Inspection, Bilateral Eye PERRL, Bilateral Eye EOMI HEENT: PERRL/EOMI, Moist Mucous Membranes; No Scleral Icterus (L), No Scleral Icterus (R) Neck: Non Tender, Supple; No JVD Respiratory: Normal Breath Sounds, No Accessory Muscle Use Cardiovascular: Regular Rate, Rhythm, No Edema, No Murmur, Normal Peripheral Pulses Gastrointestinal: Non Tender, Soft; No Distended Back: No Vertebral Tenderness, Other (erythematous, warm [id number] lesion in mid thoracic back, left of center. 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 Imaging: Reviewed Imaging Films, Reviewed Imaging Report Assessment/Plan Admission Diagnosis Skin abscess Admission Status: Inpatient Order (span 2 midnights) Reason for Inpatient Admission: abscess Assessment and Plan Cellulitis skin abscess -ct thoracic without fluid collecton, but very purulent -on vanc zosyn now, wound cx grew s aureus -surgery consult for possible incision and drain -toradol for pain Tobacco use -1ppd smoker for 25 years -nicotine patch Hx of HTN Hx T2DM -monitoring, hold home meds -normotensive and normoglycemic right now DVT ppx: lovenox Dispo: surgery consulted, receiving iv abx. continue cares. MIRELLA RIVAS DO 05/13/22 0501: History of Present Illness Source: patient Past Gburqus-Pvbjkg-Ofrkel Hx Patient Social History Marrital Status: single Employed/Student: unemployed Review of Systems Constitutional: see HPI Assessment/Plan Admission Diagnosis Admission Status: Inpatient Order (span 2 midnights) Reason for Inpatient Admission: abscess Supervisory-Addendum Brief Verification & Attestation Participated in pt care: history, MDM, physical Personally performed: exam, history, MDM, supervision of care Care discussed with: Medical Student Procedures: n/a Results interpretation: Verified all documentation Verification and Attestation of Medical Student E/M Service A medical student performed and documented this service in my presence. I revie wed and verified all information documented by the medical student and made modifications to such information, when appropriate. I personally performed the physical exam and medical decision making. Mirella Rivas, May 13, 2022,05:01 GRAHAM SHAH May 12, 2022 11:38 MIRELLA RIVAS DO May 13, 2022 05:01
[2022-05-12 12:00] VITALS: BP 101/64
[2022-05-12] MEDS: VANCOMYCIN 1 GM/NS 250 ML IVPB IV SCH ×2 (13:12)
[2022-05-12] MEDS: NICOTINE 21 MG (NICODERM) PATCH TD SCH (13:12)
[2022-05-12] MEDS: ENOXAPARIN 40 MG/0.4 ML (LOVENOX) SYR SC SCH (15:35)
--- NOTE | 2022-05-12 15:50 | Progress Note-Pre Operative ---
Pre-Operative Progress Note Date of Available H&P: May 12, 2022 Date H&P Reviewed: May 12, 2022 Time H&P Reviewed: 15:30 History & Physical: No changes noted Pre-Operative Diagnosis: complicated upper back abscess MONO SALOMON MD May 12, 2022 15:50
--- NOTE | 2022-05-12 16:30 | CONSULTATION REPORT ---
DATE OF SERVICE: 05/12/2022 ATTENDING PRIMARY CARE PHYSICIAN: Dr. Ofelia Ponce. ADMITTING PHYSICIAN: Dr. Blanca Rose. HISTORY OF PRESENT ILLNESS: The patient is a 56-year-old female with history of multiple medical problems. She has a history of hypertension, hypercholesterolemia as well as type 2 diabetes. She also developed a CVA approximately one year ago and does have memory loss as well as confusion. She developed redness, pain and swelling on the mid upper back about a week ago and was seen at urgent care and was started on antibiotics. She states that this did not go away and grew larger in size over time. Upon examination, there is a significant area of redness, erythema and fluctuance consistent with a complex abscess. This is also significantly painful to palpation. She also has the risk factor of smoking of approximately 30 pack years. PAST MEDICAL HISTORY: History of CVA approximately one year ago, type 2 diabetes, hypertension, hypercholesterolemia, descending aortic aneurysm with no indication for surgical intervention and tight control of blood pressure. PAST SURGICAL HISTORY: Laparoscopic cholecystectomy, section. ALLERGIES: SERTRALINE. MEDICATIONS: Amlodipine 10 mg daily, aspirin 81 mg daily, atorvastatin 20mg daily, Plavix 75 mg daily, fluvoxamine 50 mg daily, lisinopril 40 mg daily, metformin 500 mg b.i.d., Protonix 40 mg daily, Bactrim-DS b.i.d. SOCIAL HISTORY: Positive smoke 30 pack years, negative alcohol. FAMILY HISTORY: Sister with cerebral aneurysm in her 50s. PHYSICAL EXAMINATION: VITAL SIGNS: Temperature 36.6, blood pressure 101/64, pulse 74, respirations 18, pulse ox 100% on room air. REVIEW OF SYSTEMS: This is well-nourished female, currently awake and alert and does answer the vast majority of questions appropriately; however, does have some problems recalling information. She is not experiencing any shortness of breath or difficulty breathing. No chest pain, palpitations, diaphoresis. No nausea or vomiting. No known fevers or chills. No diarrhea or constipation. No red blood per rectum, no dark tarry stools. No recent inadvertent weight loss. PHYSICAL EXAMINATION: CHEST: Few scattered wheezes and distant breath sounds bilaterally. HEART: Regular. No murmurs. EXTREMITIES: No lower extremity edema. Negative Homans sign. HEENT: No scleral icterus. No cervical lymphadenopathy. ABDOMEN: Soft, nontender, nondistended. SKIN: There is a large area of redness, erythema and fluctuance of the mid upper back consistent with a complex back abscess. LABORATORY DATA: WBC 15.2, hemoglobin 12.2, hematocrit 37, platelets 14.7, BUN 11, creatinine 1.01. ASSESSMENT AND PLAN: A 56-year-old female with large complex abscess of the mid upper back. We will continue with IV antibiotics; however, schedule her for an incision and drainage as well as likely debridement of any devitalized tissue of the abscess pocket under anesthesia. Job ID: [id number] DocumentID: [id number] Dictated Date: 05/12/2022 15:59:44 Linotype Worker Date: 05/12/2022 16:27:00 Dictated By: MONO SALOMON MD MTDD
[2022-05-12 16:31] VITALS: BP 117/58
[2022-05-12 19:44] VITALS: BP 151/70
[2022-05-12 23:15] VITALS: BP 134/84
[2022-05-13] VITALS (12 sets, daily range): BP systolic 101–142; BP diastolic 55–84
[2022-05-13] MEDS: NS IV 1000 ML 1,000 ML IV SCH ×2 (02:21→14:30)
[2022-05-13] MEDS: PIPERACILLIN SODIUM/TAZOBACTAM 4.5 GM in NS (IVPB) 100 ML IV SCH ×3 (02:21→17:09)
[2022-05-13] MEDS: inSUlin ASPART (NovoLOG) 1 UNIT/0.01 ML (CHARGE PER UNIT) SC SCH ×4 (05:15→20:10)
[2022-05-13 05:21] LABS: AMPHETAMINE SCREEN, URINE POSITIVE (NEGATIVE); BARBITURATE SCREEN URINE NEGATIVE (NEGATIVE); BENZODIAZEPINES SCREEN URINE NEGATIVE (NEGATIVE); CANNABINOID SCREEN, URINE NEGATIVE (NEGATIVE); COCAINE SCREEN URINE NEGATIVE (NEGATIVE); METHADONE STAT NEGATIVE (NEGATIVE); OPIATE SCREEN URINE NEGATIVE (NEGATIVE); OXYCODONE STAT NEGATIVE (NEGATIVE); PROPOXYPHENE STAT NEGATIVE (NEGATIVE); TRICYCLIC ANTIDEPRESSANTS SCRE NEGATIVE (NEGATIVE)
[2022-05-13] MEDS: NICOTINE 21 MG (NICODERM) PATCH TD SCH (08:28)
[2022-05-13] MEDS: NICOTINE PATCH REMOVAL TP SCH (08:28)
[2022-05-13] MEDS: KETOROLAC 15 MG/ML VIAL IVP PRN ×2 (08:36→22:01)
[2022-05-13 09:08] LABS: BASOPHILS # (AUTO) 0.1 10^3/uL (0.0-0.1); BASOPHILS % (AUTO) 1 % (0-10); EOSINOPHILS # (AUTO) 0.5 10^3/uL (0.0-0.3); EOSINOPHILS % (AUTO) 4 % (0-10); HEMATOCRIT 34 % (35-52); HEMOGLOBIN 11.5 g/dL (11.5-16.0); LYMPHOCYTES # (AUTO) 2.7 10^3/uL (1.0-4.0); LYMPHOCYTES % (AUTO) 24 % (12-44); MEAN CORPUSCULAR HEMOGLOBIN 29 pg (25-34); MEAN CORPUSCULAR HGB CONC 34 g/dL (32-36); MEAN CORPUSCULAR VOLUME 86 fL (80-99); MEAN PLATELET VOLUME 9.3 fL (9.0-12.2); MONOCYTES # (AUTO) 0.9 10^3/uL (0.0-1.0); MONOCYTES % (AUTO) 8 % (0-12); NEUTROPHILS # (AUTO) 6.8 10^3/uL (1.8-7.8); NEUTROPHILS % (AUTO) 62 % (42-75); PLATELET COUNT 505 10^3/uL (130-400)
[2022-05-13 09:24] LABS: ALBUMIN 3.3 GM/DL (3.2-4.5); POTASSIUM 4.1 MMOL/L (3.6-5.0)
[2022-05-13 09:25] LABS: CALCIUM 8.7 MG/DL (8.5-10.1)
[2022-05-13 09:26] LABS: TOTAL PROTEIN 6.9 GM/DL (6.4-8.2)
[2022-05-13 09:28] LABS: BILIRUBIN,TOTAL 0.2 MG/DL (0.1-1.0)
[2022-05-13 09:30] LABS: CREATININE SERUM 0.72 MG/DL (0.60-1.30)
[2022-05-13] MEDS: VANCOMYCIN 1 GM/NS 250 ML IVPB IV SCH ×2 (12:55)
[2022-05-13] MEDS ORDERED: ONDANSETRON 4 MG/2 ML (SDV) Z0FRAN ONE (14:23)
[2022-05-13] MEDS ORDERED: proPOfol 200 MG/20 ML (DIPRIVAN) VIAL IV ONE (14:23)
[2022-05-13] MEDS ORDERED: fentaNYL INJ 100 MCG/2 ML AMP ONE (14:23)
[2022-05-13] MEDS ORDERED: LIDOCAINE PF 2% 5 ML (XYLOCAINE) VIAL ONE (14:23)
[2022-05-13] MEDS ORDERED: MIDAZOLAM 2 MG/2 ML (VERSED) VIAL ONE (14:23)
[2022-05-13] MEDS ORDERED: LACTATED RINGERS 1,000 ML IV PRN (15:00)
--- NOTE | 2022-05-13 15:26 | Progress Note - Hospitalist ---
GRAHAM SHAH 05/13/22 1526: Subjective HPI/CC On Admission Subjective/Events-last exam Kalee is feeling the same today. Still with pain from back. Notes the nicotine patch has helped. Focused Exam Lactate Level 05/11/22 11:10: Lactic Acid Level 2.18*H 05/11/22 15:30: Lactic Acid Level 2.05*H 05/11/22 17:45: Lactic Acid Level 1.94 Objective Exam Vital Signs Vital Signs Date Time Temp Pulse Resp B/P (MAP) Pulse Ox O2 Delivery O2 Flow Rate FiO2 05/13/22 11:26 36.3 57 18 113/70 (84) 100 Room Air Capillary Refill : Less Than 3 Seconds General Appearance: No Apparent Distress, WD/WN HEENT: PERRL/EOMI, Scleral Icterus (L), Scleral Icterus (R) Neck: Non Tender, Supple; No JVD Respiratory: Normal Breath Sounds, No Respiratory Distress Cardiovascular: Regular Rate, Rhythm, No JVD, No Murmur, Normal Peripheral Pulses Gastrointestinal: Non Tender, Soft; No Distended; Tenderness Extremity: Normal Capillary Refill, Non Tender, No Calf Tenderness, No Pedal Edema Neurologic/Psychiatric: Alert, Oriented x3, No Motor/Sensory Deficits, Normal Mood/Affect Skin: Normal Color, Warm/Dry Results/Procedures Lab Laboratory Tests 05/13/22 09:00 Patient resulted labs reviewed. Imaging: Reviewed Imaging Films, Reviewed Imaging Report Assessment/Plan Assessment and Plan Assess & Plan/Chief Complaint Cellulitis of back skin abscess -ct thoracic without fluid collecton, but very purulent -on vanc zosyn now, wound cx grew s aureus -surgery consult for possible incision and drain -toradol for pain Tobacco use -1ppd smoker for 25 years -nicotine patch Hx of HTN Hx T2DM -monitoring, hold home meds -normotensive and normoglycemic right now DVT ppx: lovenox Dispo: surgery consulted and to consider I&D, receiving iv abx. continue cares. MIRELLA RIVAS DO 05/14/22 0516: Supervisory-Addendum Brief Verification & Attestation Participated in pt care: history, MDM, physical Personally performed: exam, history, MDM, supervision of care Care discussed with: Medical Student Procedures: n/a Results interpretation: Verified all documentation Verification and Attestation of Medical Student E/M Service A medical student performed and documented this service in my presence. I reviewed and verified all information documented by the medical student and made modifications to such information, when appropriate. I personally performed the physical exam and medical decision making. Mirella Rivas, May 14, 2022,05:16 GRAHAM SHAH May 13, 2022 15:26 MIRELLA RIVAS DO May 14, 2022 05:16
[2022-05-13] MEDS ORDERED: BUP/EPI 0.5% 1:200,000 (SENSORCAINE) 30 ML VIAL ONE (15:28)
[2022-05-13] MEDS ORDERED: BUP/EPI 0.5% 1:200,000 (SENSORCAINE) 30 ML VIAL INJ ONE (15:40)
--- NOTE | 2022-05-13 15:56 | Anesthesia-General Post-Op ---
General Patient Condition Mental Status/LOC: Same as Preop Cardiovascular: Satisfactory Nausea/Vomiting: Absent Respiratory: Satisfactory Pain: Controlled Complications: Absent Post Op Complications Complications None Follow Up Care/Instructions Patient Instructions None needed. Anesthesia/Patient Condition Patient Condition Patient is doing well, no complaints, stable vital signs, no apparent adverse anesthesia problems. No complications reported per nursing. CHRISTIAN CONLEY CRNA May 13, 2022 15:56
[2022-05-13] MEDS ORDERED: ONDANSETRON 4 MG/2 ML (SDV) Z0FRAN IVP PRN (16:00)
[2022-05-13] MEDS ORDERED: PROMETHAZINE INJ 25 MG/ML (PHENERGAN) AMP IVP ONE (16:00)
[2022-05-13] MEDS ORDERED: MEPERIDINE (DEMEROL) INJ 50 MG/ML IVP ONE (16:00)
[2022-05-13] MEDS ORDERED: morphine INJ 10 MG/ML 1ML (SYR OR VIAL) IVP ONE (16:00)
[2022-05-13] MEDS ORDERED: morphine INJ 10 MG/ML 1ML (SYR OR VIAL) ONE (16:14)
[2022-05-13] MEDS ORDERED: PANTOPRAZOLE 40 MG (PROTONIX) TAB PO NR (19:30)
--- NOTE | 2022-05-13 22:17 | OPERATIVE REPORT ---
DATE OF SERVICE: 05/13/2022 PREOPERATIVE DIAGNOSES: 1. Large upper mid back abscess with devitalized tissue. 2. Small left lateral skin lesion, approximately 1 cm in size. PROCEDURE: 1. Incision and drainage and debridement of skin and subcutaneous tissue, 6 x 4 cm in size of the abscess of the upper midback and complex abscess. 2. Excision of left upper lateral skin lesion, 1 cm in size. SURGEON: Mono Salomon MD MAITRE D: Elian Lynch APRN ANESTHESIA: General endotracheal with local. ESTIMATED BLOOD LOSS: Minimal. FINDINGS: Large abscess with devitalized subcutaneous tissue and small skin lesion of the upper left lateral back 1 cm in size. DISPOSITION: The patient tolerated the procedure well. INDICATIONS: The patient is a 56-year-old female with history of diabetes as well as history of stroke. She has had issues with blood sugar control since her stroke. She was admitted for redness and swelling along the mid upper back, which have worsened over time. Upon examination, she had a large abscess identified. She also reported a skin lesion that was slightly painful along the left lateral upper back, which was of unknown etiology and appeared to be a small benign skin lesion. DESCRIPTION OF PROCEDURE: The patient was brought to the operating room, laid supine on the table. After adequate IV pain and sedative medications and general endotracheal intubation, the patient was placed in slight right lateral decubitus position. The large abscess was then anesthetized using 0.5% Marcaine with epinephrine and an elliptical shaped skin and subcutaneous tissue was excised using a #15 blade as well as electrocautery. There were multiple loculations, which were broken using blunt dissection. The excision site was 6 x 4 cm in size. The abscess cavity was irrigated, suctioned and packed wet to dry. Good hemostasis was observed. The upper left lateral skin lesion was then excised using a #15 blade. This was sent to pathology. The wound edges looked clean and did not appear to be infected and the skin edges were reapproximated using 3-0 nylon interrupted sutures. This wound was then cleaned and covered with a dry gauze. The patient tolerated the procedure well. We will continue with IV antibiotics and proceed with wound care, which would encompass a wet-to-dry dressings on a b.i.d. basis. Job ID: [id number] DocumentID: [id number] Dictated Date: 05/13/2022 15:50:23 Personal Lines Account Executive Date: 05/13/2022 22:15:00 Dictated By: MONO SALOMON MD
[2022-05-14] MEDS: PIPERACILLIN SODIUM/TAZOBACTAM 4.5 GM in NS (IVPB) 100 ML IV SCH ×2 (01:56→09:49)
[2022-05-14 03:49] VITALS: BP 121/70
[2022-05-14] MEDS: KETOROLAC 15 MG/ML VIAL IVP PRN ×2 (04:44→10:47)
[2022-05-14] MEDS: NS IV 1000 ML 1,000 ML IV SCH (04:47)
[2022-05-14 05:10] LABS: BASOPHILS # (AUTO) 0.1 10^3/uL (0.0-0.1); BASOPHILS % (AUTO) 1 % (0-10); EOSINOPHILS # (AUTO) 0.6 10^3/uL (0.0-0.3); EOSINOPHILS % (AUTO) 6 % (0-10); HEMATOCRIT 31 % (35-52); HEMOGLOBIN 10.6 g/dL (11.5-16.0); LYMPHOCYTES % (AUTO) 20 % (12-44); MEAN CORPUSCULAR HEMOGLOBIN 29 pg (25-34); MEAN CORPUSCULAR HGB CONC 34 g/dL (32-36); MEAN CORPUSCULAR VOLUME 86 fL (80-99); MEAN PLATELET VOLUME 9.3 fL (9.0-12.2); MONOCYTES # (AUTO) 0.7 10^3/uL (0.0-1.0); MONOCYTES % (AUTO) 7 % (0-12); NEUTROPHILS # (AUTO) 6.6 10^3/uL (1.8-7.8); NEUTROPHILS % (AUTO) 66 % (42-75); PLATELET COUNT 437 10^3/uL (130-400); WHITE BLOOD COUNT 9.9 10^3/uL (4.3-11.0)
[2022-05-14 05:18] LABS: POTASSIUM 4.1 MMOL/L (3.6-5.0)
[2022-05-14 05:19] LABS: CALCIUM 8.4 MG/DL (8.5-10.1)
[2022-05-14 05:20] LABS: TOTAL PROTEIN 6.2 GM/DL (6.4-8.2)
[2022-05-14 05:22] LABS: BILIRUBIN,TOTAL 0.2 MG/DL (0.1-1.0)
[2022-05-14 05:23] LABS: CREATININE SERUM 0.64 MG/DL (0.60-1.30)
[2022-05-14] MEDS: inSUlin ASPART (NovoLOG) 1 UNIT/0.01 ML (CHARGE PER UNIT) SC SCH ×4 (05:23→20:24)
--- NOTE | 2022-05-14 06:26 | Progress Note - Hospitalist ---
Subjective HPI/CC On Admission Date Seen by Provider: May 14, 2022 Time Seen by Provider: 11:30 Subjective/Events-last exam Pain controlled Partner at bedside IV abx maintained Review of Systems General: Fatigue Focused Exam Lactate Level 05/11/22 17:45: Lactic Acid Level 1.94 Objective Exam Vital Signs Vital Signs Date Time Temp Pulse Resp B/P (MAP) Pulse Ox O2 Delivery O2 Flow Rate FiO2 05/14/22 16:16 36.6 67 18 132/83 (99) 98 Room Air 05/14/22 12:13 0.00 Capillary Refill : Less Than 3 Seconds General Appearance: No Apparent Distress, WD/WN, Chronically ill Results/Procedures Lab Laboratory Tests 05/14/22 05:00 Patient resulted labs reviewed. Imaging: Reviewed Imaging Films, Reviewed Imaging Report Assessment/Plan Assessment and Plan Assess & Plan/Chief Complaint Cellulitis of back skin abscess -ct thoracic without fluid collecton, but very purulent -on vanc zosyn now, wound cx grew s aureus -surgery consult for possible incision and drain -toradol for pain Tobacco use -1ppd smoker for 25 years -nicotine patch Hx of HTN Hx T2DM -monitoring, hold home meds -normotensive and normoglycemic right now DVT ppx: lovenox Dispo: surgery consulted and to consider I&D, receiving iv abx. continue cares. TIA RIVAS DO May 14, 2022 06:26
[2022-05-14] MEDS: NICOTINE PATCH REMOVAL TP SCH (08:12)
[2022-05-14] MEDS: NICOTINE 21 MG (NICODERM) PATCH TD SCH (08:12)
[2022-05-14] MEDS: PANTOPRAZOLE 40 MG (PROTONIX) TAB PO SCH (08:14)
[2022-05-14 08:53] VITALS: BP 132/79
--- NOTE | 2022-05-14 11:57 | Progress Note ---
Subjective Date Seen by a Provider: May 14, 2022 Time Seen by a Provider: 11:55 Subjective/Events-last exam doing ok. has some pain back. wound intact w/o new areas redness/erythema. Focused Exam Lactate Level 05/11/22 15:30: Lactic Acid Level 2.05*H 05/11/22 17:45: Lactic Acid Level 1.94 Objective Exam Vital Signs Date Time Temp Pulse Resp B/P (MAP) Pulse Ox O2 Delivery O2 Flow Rate FiO2 05/14/22 08:53 36.4 68 18 132/79 (96) 100 Room Air 05/14/22 03:49 36.6 64 16 121/70 (87) 98 Room Air 05/13/22 23:47 36.8 65 16 103/64 (77) 98 Room Air 05/13/22 21:50 Room Air 05/13/22 20:14 36.5 67 20 106/69 (81) 98 Room Air 05/13/22 20:00 98 Room Air 05/13/22 16:59 36.5 72 18 128/55 (79) 97 Room Air 05/13/22 16:45 Room Air 05/13/22 16:40 36.5 16 124/66 (85) 99 Room Air 05/13/22 16:35 OxyMask 2.00 05/13/22 16:30 15 126/77 (93) 100 OxyMask 4.00 05/13/22 16:20 OxyMask 4.00 05/13/22 16:20 20 142/73 (96) 100 OxyMask 4.00 05/13/22 16:10 14 142/83 (102) 100 OxyMask 8 05/13/22 16:05 OxyMask 8 05/13/22 16:00 12 138/72 (94) 100 OxyMask 8 05/13/22 15:50 OxyMask 8 05/13/22 15:50 37.1 16 101/60 (74) 100 OxyMask 8 I & O 05/14/22 07:00 Intake Total 760 ml Output Total 150 ml Balance 610 ml Capillary Refill : Less Than 3 Seconds General Appearance: No Apparent Distress HEENT: PERRL/EOMI Neck: Full Range of Motion Respiratory: Chest Non Tender, Normal Breath Sounds Cardiovascular: Regular Rate, Rhythm Gastrointestinal: normal bowel sounds, non tender, soft Extremity: Normal Capillary Refill Neurologic/Psychiatric: Alert, Oriented x3 Skin: Other (wound clean/dry, no new areas redness/erythema/necrosis) Lymphatic: No Adenopathy Results Lab Laboratory Tests 05/13/22 17:15: Glucometer 85 05/13/22 20:00: Glucometer 249H 05/14/22 05:00: White Blood Count 9.9, Red Blood Count 3.66L, Hemoglobin 10.6L, Hematocrit 31L, Mean Corpuscular Volume 86, Mean Corpuscular Hemoglobin 29, Mean Corpuscular Hemoglobin Concent 34, Red Cell Distribution Width 14.3, Platelet Count 437H, Mean Platelet Volume 9.3, Immature Granulocyte % (Auto) 1, Neutrophils (%) (Auto) 66, Lymphocytes (%) (Auto) 20, Monocytes (%) (Auto) 7, Eosinophils (%) (Auto) 6, Basophils (%) (Auto) 1, Neutrophils # (Auto) 6.6, Lymphocytes # (Auto) 2.0, Monocytes # (Auto) 0.7, Eosinophils # (Auto) 0.6H, Basophils # (Auto) 0.1, Immature Granulocyte # (Auto) 0.1, Sodium Level 140, Potassium Level 4.1, Chloride Level 110H, Carbon Dioxide Level 21, Anion Gap 9, Blood Urea Nitrogen 3L, Creatinine 0.64, Estimat Glomerular Filtration Rate 104, BUN/Creatinine Ratio 5, Glucose Level 86, Calcium Level 8.4L, Corrected Calcium 9.2, Total Bilirubin 0.2, Aspartate Amino Transf (AST/SGOT) 12, Alanine Aminotransferase (ALT/SGPT) 16, Alkaline Phosphatase 98, Total Protein 6.2L, Albumin 3.0L 05/14/22 05:10: Vancomycin Level Trough 6.9L Microbiology 05/13/22 MRSA Screen - Final, Complete MRSA not isolated 05/11/22 Blood Culture - Preliminary, Resulted No growth 05/11/22 Gram Stain - Final, Complete 05/11/22 Wound Culture - Final, Complete Staphylococcus aureus Staphylococcus epidermidis No Susceptibility Performed Assessment/Plan Assessment/Plan Assess & Plan/Chief Complaint large upper back abscess s/p incision/drainage/debridement. cont abx. wet to dry dressing changes BID. MONO SALOMON MD May 14, 2022 11:57
[2022-05-14] MEDS: VANCOMYCIN 1 GM/NS 250 ML IVPB IV SCH ×4 (12:10→23:38)
[2022-05-14 12:13] VITALS: BP 101/57
[2022-05-14] MEDS: ENOXAPARIN 40 MG/0.4 ML (LOVENOX) SYR SC SCH (15:46)
[2022-05-14 16:16] VITALS: BP 132/83
--- NOTE | 2022-05-14 19:14 | D/C HH Face to Face Order ---
D/C Face to Face Orders Reconcile Patient Problems Problems Reviewed?: Yes Instructions for Patient Via [facility] [employer], Patient Instructions/FollowUp: f/u in office in one week. Physician to follow Patient: dr. salomon Discharge Diet for Home: No Restrictions Patient Problems: large upper back abscess s/p incision and drainage and debridement. Goals for Patient: wound care Patient Data-Allergies,Ht & Wt Patient Allergies: Coded Allergies: famotidine (Verified Allergy, Mild, 05/13/22) MAKES HER HIPS SWELL ( PER PATIENT) sertraline (Verified Allergy, Unknown, 04/05/21) Home Health Need/Face to Face Date of Face to Face: May 14, 2022 Clinical Findings: Generalized weakness and fatigue, Unsteady gait, Wound infection I have seen Pt [id number]: Yes Discharged To: Home Diagnosis/Conditions: large upper back abscess s/p incision and drainage and debridement. diabetes Patient is Homebound due to: CognItive deficits, Muscle weakness inability to do wet to dry dressing changes BID due to location Homebound Status Due to the above stated illness, injury or surgical procedure (medical condit ion or diagnosis) and associated clinical findings, the patient is homebound because of his/her inability to leave home except with aid of a supportive device and/or person AND leaving the home requires a considerable and taxing effort or is medically contraindicated. Pt req the following assistanc: Aid of another person Home Health Nursing Orders Home Health Services Order: Wound Care-Eval/Treat (wet to dry dressing change bid. no need to back tight, just stent wound open.) Home Health Infusion Therapy Line Start Date: May 13, 2022 Certify Stmt I certify that this patient is under my care and that I, a nurse practitioner or a physician; a chiropractor assistant working with me, had a face to face encounter that - meets the physician face to face encounter requirements with this patient as dated. MONO SALOMON MD May 14, 2022 19:14
[2022-05-14] MEDS ORDERED: TRAM50TA3 PO (19:18)
[2022-05-14] MEDS ORDERED: AMOX1TAB12 PO (19:18)
[2022-05-14 19:47] VITALS: BP 155/82
[2022-05-14 23:59] VITALS: BP 149/78
[2022-05-15 03:59] VITALS: BP 128/79
[2022-05-15 05:23] LABS: BASOPHILS # (AUTO) 0.1 10^3/uL (0.0-0.1); BASOPHILS % (AUTO) 1 % (0-10); EOSINOPHILS # (AUTO) 0.6 10^3/uL (0.0-0.3); EOSINOPHILS % (AUTO) 7 % (0-10); HEMATOCRIT 36 % (35-52); LYMPHOCYTES # (AUTO) 2.1 10^3/uL (1.0-4.0); LYMPHOCYTES % (AUTO) 23 % (12-44); MEAN CORPUSCULAR HEMOGLOBIN 28 pg (25-34); MEAN CORPUSCULAR HGB CONC 34 g/dL (32-36); MEAN CORPUSCULAR VOLUME 85 fL (80-99); MEAN PLATELET VOLUME 9.1 fL (9.0-12.2); MONOCYTES # (AUTO) 0.6 10^3/uL (0.0-1.0); MONOCYTES % (AUTO) 6 % (0-12); NEUTROPHILS # (AUTO) 5.6 10^3/uL (1.8-7.8); NEUTROPHILS % (AUTO) 63 % (42-75); PLATELET COUNT 558 10^3/uL (130-400)
[2022-05-15 05:34] LABS: ALBUMIN 3.4 GM/DL (3.2-4.5)
--- NOTE | 2022-05-15 05:34 | Progress Note - Hospitalist ---
Subjective HPI/CC On Admission Date Seen by Provider: May 15, 2022 Time Seen by Provider: 11:00 Objective Exam Vital Signs Vital Signs Date Time Temp Pulse Resp B/P (MAP) Pulse Ox O2 Delivery O2 Flow Rate FiO2 05/15/22 10:41 36.4 60 18 139/87 98 Room Air 0.00 Capillary Refill : Less Than 3 Seconds Results/Procedures Lab Laboratory Tests 05/15/22 05:14 Patient resulted labs reviewed. Imaging: Reviewed Imaging Films, Reviewed Imaging Report Assessment/Plan Assessment and Plan Assess & Plan/Chief Complaint Cellulitis of back skin abscess -ct thoracic without fluid collecton, but very purulent -on vanc zosyn now, wound cx grew s aureus -surgery consult for possible incision and drain -toradol for pain Tobacco use -1ppd smoker for 25 years -nicotine patch Hx of HTN Hx T2DM -monitoring, hold home meds -normotensive and normoglycemic right now DVT ppx: lovenox Dispo: surgery consulted and to consider I&D, receiving iv abx. continue cares. TIA RIVAS DO May 15, 2022 05:34
[2022-05-15 05:36] LABS: CALCIUM 8.7 MG/DL (8.5-10.1)
[2022-05-15 05:37] LABS: TOTAL PROTEIN 7.1 GM/DL (6.4-8.2)
[2022-05-15 05:39] LABS: BILIRUBIN,TOTAL 0.2 MG/DL (0.1-1.0)
[2022-05-15 05:41] LABS: CREATININE SERUM 0.71 MG/DL (0.60-1.30)
[2022-05-15] MEDS: inSUlin ASPART (NovoLOG) 1 UNIT/0.01 ML (CHARGE PER UNIT) SC SCH (06:13)
[2022-05-15] MEDS: NICOTINE 21 MG (NICODERM) PATCH TD SCH (07:51)
[2022-05-15] MEDS: NICOTINE PATCH REMOVAL TP SCH (07:52)
[2022-05-15] MEDS: PANTOPRAZOLE 40 MG (PROTONIX) TAB PO SCH (07:52)
[2022-05-15 08:07] VITALS: BP 139/87
[2022-05-15 10:41] VITALS: BP 139/87
--- NOTE | 2022-05-15 11:35 | Discharge Summary ---
Discharge Summary Hospital Course Was the Problem List Reviewed?: Yes Problems/Dx: (1) Severe sepsis (2) Cellulitis of back Status: Acute Hospital Course Date of Admission: May 11, 2022 at 14:30 Admission Diagnosis : Family Physician/Provider: Date of Discharge: 05/15/22 Discharge Diagnosis: [ ] Hospital Course: Short course after she was admitted with cellulitis and early abscess of her back requiring IVF and IV abx and I&D by Dr Funes. Had uneventful course and she was DC with for wound care. Labs and Pending Lab Test: Laboratory Tests 05/14/22 16:14: Glucometer 102 05/14/22 19:51: Glucometer 124H 05/15/22 05:14: White Blood Count 9.0, Red Blood Count 4.23, Hemoglobin 12.0, Hematocrit 36, Mean Corpuscular Volume 85, Mean Corpuscular Hemoglobin 28, Mean Corpuscular H emoglobin Concent 34, Red Cell Distribution Width 14.2, Platelet Count 558H, Mean Platelet Volume 9.1, Immature Granulocyte % (Auto) 0, Neutrophils (%) (Auto) 63, Lymphocytes (%) (Auto) 23, Monocytes (%) (Auto) 6, Eosinophils (%) (Auto) 7, Basophils (%) (Auto) 1, Neutrophils # (Auto) 5.6, Lymphocytes # (Auto) 2.1, Monocytes # (Auto) 0.6, Eosinophils # (Auto) 0.6H, Basophils # (Auto) 0.1, Immature Granulocyte # (Auto) 0.0, Sodium Level 139, Potassium Level 4.0, Chlor may Level 106, Carbon Dioxide Level 23, Anion Gap 10, Blood Urea Nitrogen 4L, Creatinine 0.71, Estimat Glomerular Filtration Rate 100, BUN/Creatinine Ratio 6, Glucose Level 128H, Calcium Level 8.7, Corrected Calcium 9.2, Total Bilirubin 0.2, Aspartate Amino Transf (AST/SGOT) 16, Alanine Aminotransferase (ALT/SGPT) 15, Alkaline Phosphatase 100, Total Protein 7.1, Albumin 3.4 Microbiology 05/13/22 MRSA Screen - Final, Complete MRSA not isolated 05/11/22 Blood Culture - Preliminary, Resulted No growth 05/11/22 Gram Stain - Final, Complete 05/11/22 Wound Culture - Final, Complete Staphylococcus aureus Staphylococcus epidermidis No Susceptibility Performed Home Meds Active Tramadol HCl 50 Mg Tablet 50-100 Mg PO Q4M Amox Tr-K Clv 875-125 mg Tab (Amoxicillin/Potassium Clav) 875 Mg-125 Mg Tablet 1 Each PO BID 7 Days Reported Bactrim Ds Tablet (Sulfamethoxazole/Trimethoprim) 800 Mg-160 Mg Tablet 1 Ea PO BID FILLED 05-07-2022 #14/7 DAY SUPPLY Aspirin EC (Aspirin) 81 Mg Tablet. 81 Mg PO DAILY Metformin HCl 500 Mg Tablet 500 Mg PO BID Lisinopril 40 Mg Tablet 40 Mg PO DAILY Atorvastatin Calcium 80 Mg Tablet 80 Mg PO DAILY Pantoprazole Sodium 40 Mg Tablet. 40 Mg PO DAILY Amlodipine Besylate 10 Mg Tablet 10 Mg PO DAILY Fluvoxamine Maleate 50 Mg Tablet 50 Mg PO DAILY Clopidogrel (Clopidogrel Bisulfate) 75 Mg Tablet 75 Mg PO DAILY Assessment/Pt Instructions PCP and Dr Funes in 1 week Discharge Planning: <30 minutes discharge planning Discharge Instructions Discharge Diet: No Restrictions Discharge Physical Examination Vital Signs Vital Signs Date Time Temp Pulse Resp B/P (MAP) Pulse Ox O2 Delivery O2 Flow Rate FiO2 05/15/22 10:41 36.4 60 18 139/87 98 Room Air 0.00 General Appearance: No Apparent Distress, WD/WN, Chronically ill Allergies: Coded Allergies: famotidine (Verified Allergy, Mild, 05/13/22) MAKES HER HIPS SWELL ( PER PATIENT) sertraline (Verified Allergy, Unknown, 04/05/21) Discharge Summary Date of Admission May 11, 2022 at 14:30 Date of Discharge May 15, 2022 at 10:40 Admission Diagnosis Skin abscess Discharge Diagnosis Cellulitis of back skin abscess -ct thoracic without fluid collecton, but very purulent -on vanc zosyn now, wound cx grew s aureus -surgery consult for possible incision and drain -toradol for pain Tobacco use -1ppd smoker for 25 years -nicotine patch Hx of HTN Hx T2DM -monitoring, hold home meds -normotensive and normoglycemic right now DVT ppx: lovenox Dispo: surgery consulted and to consider I&D, receiving iv abx. continue cares. TIA RIVAS DO May 15, 2022 11:34
[2022-05-15] MEDS ORDERED: TRM50T PO (14:04)
--- NOTE | 2022-05-19 23:55 | Physician Query Clarification ---
PQ-Uncertain Diagnosis Admission/Discharge Admission Date: May 11, 2022 at 14:30 Discharge Date: May 15, 2022 at 10:40 TIA Luque DO The medical record reflects the following clinical scenario: History/Risk Factors: 56 y/o female patient admitted with cellulitis of upper mid back with abscess, severe sepsis was documented in medical record. H and P, 05/11: Cellulitis of upper mid back, skin abscess. Discharge summary, 05/15: Severe sepsis , cellulitis of back. Clinical Findings: Wbc- 21.5 H, anion gap- 16 H, lactic acid level- 2.18 H, pulse- 95 on admission. Treatment: IV F and IV antibiotics and incision and debridement of abscess. Question: Is Sepsis a clinically valid diagnosis? Sepsis was documented in the discharge summary, 05/15 with no further documentation in the medical record. Please document a response in Progress Note or Discharge Summary. 1. Yes, clinically valid, condition resolved, present on admission. 2. No, condition ruled out. 3. Other, with explanation of clinical findings. 4. Undetermined, no explanation for clinical findings. PHYSICIAN RESPONSE Diagnosis clinically valid: Yes, Conditon resolved In responding to this query, please exercise your independent professional judgment. The purpose of this communication is to more accurately reflect the complexity of your patients condition. The fact that a question is asked does not imply that any particular answer is desired or expected. Thank you for your timely response to this clarification. Requestors name: [ ] Phone # [ ] THIS PHYSICIAN QUERY FORM IS A PERMANENT PART OF THE MEDICAL RECORD [facility] [place] May 19, 2022 23:55 TIA RIVAS DO May 20, 2022 04:49
== END 2022-05-15 10:40 | disposition home health service (06) | DRG 854 ==
LOC: EDUNIT# 10:00 → ER FS 10:02 → 4TH 14:30
PROVIDERS: ADMIT Family Medicine; ATTEND Family Medicine
PROC: 0JB70ZZ Excision of Back Subcutaneous Tissue and Fascia, Open Approach (ICD-10-PCS; principal; 2022-05-13 15:10)
DX: A41.9 Sepsis, unspecified organism (principal); L02.212 Cutaneous abscess of back [any part, except buttock and flank]; L03.312 Cellulitis of back [any part except buttock and flank]; R65.20 Severe sepsis without septic shock; I10 Essential (primary) hypertension; E11.9 Type 2 diabetes mellitus without complications; E78.5 Hyperlipidemia, unspecified; Z86.73 Personal history of transient ischemic attack (TIA), and cerebral infarction without residual deficits; F15.10 Other stimulant abuse, uncomplicated; F41.9 Anxiety disorder, unspecified; F17.210 Nicotine dependence, cigarettes, uncomplicated
CPT/HCPCS: 36415; 36569; 72128; 76937; 80053; 80202; 80306; 82947; 83605; 84703; 85007; 85025; 85027; 87040; 87070; 87077; 87081; 87186; 87205; 88304; 88305; 96365; 96367